=== PATIENT | female | born 1995 | race Caucasian/White ===

== ENCOUNTER 2019-03-03 10:04 | Inpatient (IN) ==
[2019-03-03] MEDS ORDERED: SODIUM CHLORIDE 0.9% 1000ML 2,000 ML IV SCH (10:45)
--- NOTE | 2019-03-03 10:49 | XRay Report ---
XR chest 1V portable HISTORY: 24 years-old Female syncope acute syncope COMPARISON: None available TECHNIQUE: Portable AP view of the chest FINDINGS: The cardiomediastinal and hilar silhouettes are within normal limits. Asymmetric alveolar opacities a re noted about the right upper lobe. Cardiomediastinal and hilar silhouettes are within normal limits . No pneumothorax, pleural effusion or overt pulmonary edema. Bones of the chest appear normal. IMPRESSION: Alveolar opacities of the right upper lobe are suspicious for pneumonia in the appropriat e clinical setting. The above report was generated using voice recognition software. It may contain grammatical, syntax o r spelling errors. Electronically signed by: Eliecer Dawson M.D. 03/03/2019 10:48 AM
[2019-03-03 11:19] LABS: Basophils # (auto) 0.03 K/uL (0-0.2); Basophils % (auto) 0.4 %; Eosinophils # (auto) 0.14 K/uL (0-0.5); Eosinophils % (auto) 1.7 %; Hematocrit (blood only) 37.7 % (37-47); Hemoglobin 12.7 g/dL (12.0-16.0); Immature Granulocytes # (auto) 0.03 K/uL (0.00-0.02); Immature Granulocytes % (auto) 0.4 %; Lymphocytes # (auto) 1.82 K/uL (1.2-3.4); Lymphocytes % (auto) 21.9 %; Mean Corpuscular Hgb Conc 33.7 g/dL (32-36); Mean Corpuscular Volume 90.6 fL (80-100); Mean Platelet Volume 11.2 fL (7.4-10.4); Monocytes # (auto) 0.38 K/uL (0.11-0.59); Monocytes % (auto) 4.6 %; Neutrophils # (auto) 5.92 K/uL (1.4-6.5); Platelet Count 323 K/uL (130-400); RDW Standard Deviation 39.8 fL (36.4-46.3); Red Blood Count 4.16 M/uL (4.2-5.4); White Blood Count 8.32 K/uL (4.8-10.8)
[2019-03-03 11:27] LABS: INR 1.1 (0.9-1.1); Prothrombin Time 11.6 Seconds (9.0-12.0)
[2019-03-03 11:36] LABS: Alanine Aminotransferase 30 U/L (12-78); Albumin Level 3.3 gm/dl (3.4-5.0); Aspartate Aminotransferase 30 U/L (15-37); Blood Urea Nitrogen 8 mg/dl (7-18); Calcium 9.9 mg/dl (8.5-10.1); Carbon Dioxide 26 mmol/L (21-32); Chloride 109 mmol/L (98-107); Est GFR (African American) 98.4; Est GFR (Non-African American) 84.9; Glucose 65 mg/dl (70-99); Magnesium 2.2 mg/dl (1.8-2.4); Potassium 4.4 mmol/L (3.5-5.1); Sodium 140 mmol/L (136-145)
[2019-03-03 11:46] LABS: Albumin Globulin Ratio 0.8 (0.9-2); Alkaline Phosphatase 105 U/L (45-117); Bilirubin,Total 0.1 mg/dl (0.2-1); Globulin 4.2 gm/dl (2.5-4.0); Total Protein 7.5 gm/dl (6.4-8.2); Troponin I < 0.015 ng/ml (0-0.045)
[2019-03-03 12:08] LABS: Appearance Urine Clear (Clear); Bacteria Urine Automated Negative (Negative); Bilirubin Urine Negative (Negative); Blood Urine Negative (Negative); Cast Urine Automated 0 /lpf (0-5); Color Urine Yellow; Epithelial Cell Urine Auto 20-30 /lpf (0-5); Glucose Urine UA Negative (Negative); Ketones Urine Negative (Negative); Leukocyte Esterase Urine Trace (Negative); Nitrite Urine Negative (Negative); Protein Urine Negative (Negative); RBC Urine Automated 0-4 /hpf (0-4); Specific Gravity Urine 1.009 (1.000-1.030); Urobilinogen Urine Negative (Negative)
[2019-03-03] MEDS ORDERED: OPTIRAY 320 125ml IV PRN (12:57)
--- NOTE | 2019-03-03 12:58 | CT Scan Report ---
CT head/brain wo con CT DOSE: HISTORY: Mental status change syncope TECHNIQUE: Multiaxial CT images of the head were performed without the use of intravenous contrast. A dose lowering technique was utilized adhering to the principles of ALARA. Comparison: None. Findings: The paranasal sinuses and mastoid air cells are clear. The calvarium and skull base are int act. The ventricles and sulci are within normal limits. There is no mass, hematoma, midline shift, or acute infarct. Impression: No acute intracranial abnormality. The above report was generated using voice recognition software. It may contain grammatical, syntax or spelling errors. Electronically signed by: Arvin Ford M.D. 03/03/2019 12:56 PM
--- NOTE | 2019-03-03 13:04 | CT Scan Report ---
CT angio chest PE protocol CT DOSE: 1022.56 mGy.cm HISTORY: Chest pain PE TECHNIQUE: Multiaxial CT images of the chest were performed following the intravenous administration of contrast to evaluate the pulmonary arteries. Maximal intensity projection images were also obtaine d. A dose lowering technique was utilized adhering to the principles of ALARA. COMPARISON STUDY: None. FINDINGS: Study is positive for pulmonary emboli involving the distal right main pulmonary artery as well as all major arterial involvement of the proximal right upper and right lower lobe pulmonary art erial structures. No evidence for a saddle embolus. Pulmonary arterial structures of the left hemitho rax enhance appropriately. There is, however a second order filling defect involving the mid left per ihilar pulmonary arterial vasculature. There is no evidence for a saddle embolus. There is a consolidative infiltrative process of the right upper lobe at the right apical region with associated underlying somewhat nodular component. Lungs otherwise appear clear. Minimal bibasilar at electasis. IMPRESSION: 1. Study is positive for right and to a lesser extent left central pulmonary emboli. 2. No evidence for a saddle embolus 3. Consolidative parenchymal infiltrate right upper lobe with associated multifocal nodularity. 4. CT should be repeated a later date to ensure complete resolution of the right upper lobe findings. The above report was generated using voice recognition software. It may contain grammatical, syntax or spelling errors. Electronically signed by: Arvin Ford M.D. 03/03/2019 1:03 PM
[2019-03-03 13:29] LABS: Partial Thromboplastin Ratio 1.3; Partial Thromboplastin Time 35.9 Seconds (21.0-31.0)
[2019-03-03] MEDS ORDERED: HEPARIN SOD (PORCINE) 1000 UNIT/ML 10 ML VIAL IV STA (13:35)
[2019-03-03] MEDS ORDERED: Heparin Adult STANDARD Wt-Based Dextrose 5% 25,000 units/500 mL IV SCH (13:45)
--- NOTE | 2019-03-03 14:33 | Emergency Department Note ---
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 Denies: head pain, neck pain, abdominal pain, nausea, vomiting.) The patient is a 24 year old female who presents to the Emergency Room with complaints of an episode of syncope beginning [employer]TE[employer]. She is accompanied by an employee from [facility], who reports the patient was in line for medication when a nurse witnessed her fall and lose consciousness. The patient states she does not remember how she fell and denies loss of consciousness or head trauma. The patient notes recent difficulties with balance, and states she has had pain in the front of her legs beginning 3 days ago. She reports diarrhea, beginning yesterday. The patient denies head pain, neck pain, abdominal pain, nausea, vomiting. She states her menstrual periods are very irregular, and her last one was last week. The patient denies oral control use. The patient came to [facility] on 02/27/19 for rehab for opioid addiction. She had two syncopal episodes at that time, and was taken to [place] ED. The patient was admitted for bilateral PEs and right upper lobe pneumonia. She was discharged yesterday, 03/02/19, back to [facility]. Home Medications Home Medications Medication Instructions Recorded Confirmed Type B complex with C#20-folic acid 1 cap PO DAILY 03/03/19 03/03/19 History [Nephrocaps] amoxicillin-pot clavulanate 1 tab PO BID 03/03/19 03/03/19 History [Augmentin] apixaban [Eliquis] 5 mg PO BID 03/03/19 03/03/19 History chlordiazepoxide HCl 25 mg PO UD 03/03/19 03/03/19 History duloxetine [Cymbalta] 60 mg PO DAILY 03/03/19 03/03/19 History folic acid 1 mg PO DAILY 03/03/19 03/03/19 History gabapentin 800 mg PO QID 03/03/19 03/03/19 History nicotine 1 patch TRANSDERMAL DAILY 03/03/19 03/03/19 History thiamine HCl (vitamin B1) [Vitamin 100 mg PO DAILY 03/03/19 03/03/19 History B-1] Allergies Allergy/AdvReac Type Severity Reaction Status Date / Time morphine AdvReac Unknown itchy Unverified 03/03/19 11:06 Past Med/Surg History Medical History Addiction Social History Feels Safe at Home: Yes Smoking Status: Current every day smoker Review of Systems See HPI for pertinent positives & negatives. and A total of 10 systems reviewed and were otherwise negative Physical Exam Vital Signs Vital Signs - 24 hr 03/03/19 10:09 03/03/19 10:32 03/03/19 10:55 Temperature 36.7 C Temperature Source Oral Sepsis Recent Fever Within 48 Hours No Sepsis Action Taken by Nursing No Action Required Pulse Rate 102 H 84 Pulse Rate from SpO2 Sensor Respiratory Rate 18 20 Blood Pressure 103/68 Blood Pressure Mean 79 Blood Pressure Position Sitting Pulse Oximetry 100 99 Oxygen Delivery Method Room Air 03/03/19 11:00 03/03/19 11:02 03/03/19 11:10 Temperature Temperature Source Sepsis Recent Fever Within 48 Hours Sepsis Action Taken by Nursing Pulse Rate 82 85 77 Pulse Rate from SpO2 Sensor 81 77 Respiratory Rate 14 15 17 Blood Pressure 106/67 Blood Pressure Mean 80 Blood Pressure Position Pulse Oximetry 100 99 Oxygen Delivery Method 03/03/19 11:25 03/03/19 11:30 03/03/19 11:31 Temperature Temperature Source Sepsis Recent Fever Within 48 Hours Sepsis Action Taken by Nursing Pulse Rate 79 66 65 Pulse Rate from SpO2 Sensor 66 66 Respiratory Rate 18 18 21 Blood Pressure 119/71 Blood Pressure Mean 87 Blood Pressure Position Pulse Oximetry 100 99 Oxygen Delivery Method 03/03/19 11:40 03/03/19 11:50 03/03/19 12:00 Temperature Temperature Source Sepsis Recent Fever Within 48 Hours Sepsis Action Taken by Nursing Pulse Rate 58 L 57 L 57 L Pulse Rate from SpO2 Sensor 56 L 57 L 55 L Respiratory Rate 20 19 16 Blood Pressure 115/77 Blood Pressure Mean 89 Blood Pressure Position Pulse Oximetry 99 100 100 Oxygen Delivery Method 03/03/19 12:01 03/03/19 12:10 03/03/19 12:20 Temperature Temperature Source Sepsis Recent Fever Within 48 Hours Sepsis Action Taken by Nursing Pulse Rate 52 L 52 L 59 L Pulse Rate from SpO2 Sensor 52 L 52 L 60 Respiratory Rate 16 16 16 Blood Pressure Blood Pressure Mean Blood Pressure Position Pulse Oximetry 100 99 99 Oxygen Delivery Method 03/03/19 12:30 03/03/19 12:31 Temperature Temperature Source Sepsis Recent Fever Within 48 Hours Sepsis Action Taken by Nursing Pulse Rate 55 L 55 L Pulse Rate from SpO2 Sensor 56 L 57 L Respiratory Rate 14 16 Blood Pressure 110/73 Blood Pressure Mean 85 Blood Pressure Position Pulse Oximetry 99 99 Oxygen Delivery Method GENERAL: Sitting up in bed, lethargic, non-toxic HEAD: normal cephalic, atraumatic EYE EXAM: normal conjunctiva, PERRL and EOM's grossly intact OROPHARYNX: no exudate, no erythema, lips, buccal mucosa, and tongue normal and mucous membranes are moist EARS: TMs clear b/l NECK: supple, no nuchal rigidity, no adenopathy, non-tender CHEST: stable to compression anteriorly and posteriorly LUNGS: clear to auscultation. Normal chest wall mechanics HEART: no murmurs, S1 normal and S2 normal ABDOMEN: abdomen soft, non-tender, normo-active bowel sounds, no masses, no rebound or guarding. PELVIS: stable to compression anteriorly and posteriorly BACK: Back is symmetrical on inspection and there is no deformity, no midline tenderness, no CVA tenderness. UPPER EXTREMITIES: full active and passive range of motion of all joints without tenderness to palpation LOWER EXTREMITIES: Pain with range of motion and palpation of bilateral thighs. Calves equal bilaterally. NEURO EXAM: Normal sensorium, cranial nerves II-XII grossly intact, normal speech, no gross weakness of arms, no gross weakness of legs. GCS: 15. Course ED COURSE: Vital signs were reviewed and showed tachycardia. The patients medical record was reviewed The above diagnostic studies were performed and reviewed. ED treatments and interventions as stated above. 1016: The patient was evaluated in room C9. A complete history and physical examination was performed. 1146: I reevaluated the patient and discussed her test results. 1308: Upon reevaluation, the patient is resting. I discussed my findings with the patient and she understands and agrees with the treatment plan. 1313: I reviewed the patient's case with Lisha Sanchez PA-C, [facility]. She will evaluate the patient for further management. Based on the patients age, coexisting illnesses, exam and lab findings the decision to treat as an inpatient was made. The patient remained stable while under my care. The patient will be evaluated for further management. Consultations Consultation #1: Lisha Sanchez PA-C, [facility] Time: 13:13 Administered Medications Ioversol (Optiray 320 125ml) 119 ml IV ONCE PRN PRN Reason: Interaction Checking Stop: 03/07/19 12:56 Last Admin: 03/03/19 12:58 Dose: 119 ml Documented by: [id number] Discontinued Medications Sodium Chloride (Nss 1000ml) 2,000 mls @ 999 mls/hr IV .Q2H1M ARABELLA Stop: 03/03/19 12:45 Last Infusion: 03/03/19 13:30 Dose: 0 mls/hr Documented by: [id number] Admin: 03/03/19 11:10 Dose: 999 mls/hr Documented by: [id number] Medical Decision Making Differential Diagnosis Differential diagnosis includes etiologies such as vasovagal event, infection, hypoglycemia, electrolyte abnormalities, cardiac sources, intracerebral event, toxicologic, neurologic, as well as others were entertained. Medical Records Attestation: I reviewed the patient's medical records. Home Medications Current Medication List: was personally reviewed by me Laboratory Data Attestation: I reviewed the patient's lab results. Result diagrams: 03/03/19 11:02 03/03/19 11:02 Lab Results 03/03/19 03/03/19 03/03/19 Range/Units 11:02 11:02 11:02 WBC 8.32 (4.8-10.8) K/uL RBC 4.16 L (4.2-5.4) M/uL Hgb 12.7 (12.0-16.0) g/dL Hct 37.7 (37-47) % MCV 90.6 (80-100) fL MCH 30.5 (25-34) pg MCHC 33.7 (32-36) g/dL RDW Std Deviation 39.8 (36.4-46.3) fL RDW Coeff of Santosh 12.0 (11.5-14.5) % Plt Count 323 (130-400) K/uL MPV 11.2 H (7.4-10.4) fL Immature Gran % (Auto) 0.4 % Neut % (Auto) 71.0 % Lymph % (Auto) 21.9 % [place] % (Auto) 4.6 % Eos % (Auto) 1.7 % Baso % (Auto) 0.4 % Immature Gran # (Auto) 0.03 H (0.00-0.02) K/uL Neut # (Auto) 5.92 (1.4-6.5) K/uL Lymph # (Auto) 1.82 (1.2-3.4) K/uL [place] # (Auto) 0.38 (0.11-0.59) K/uL Eos # (Auto) 0.14 (0-0.5) K/uL Baso # (Auto) 0.03 (0-0.2) K/uL PT 11.6 (9.0-12.0) Seconds INR 1.1 (0.9-1.1) APTT (21.0-31.0) Seconds PTT Ratio Sodium 140 (136-145) mmol/L Potassium 4.4 (3.5-5.1) mmol/L Chloride 109 H (98-107) mmol/L Carbon Dioxide 26 (21-32) mmol/L Anion Gap 6.0 (3-11) BUN 8 (7-18) mg/dl Creatinine 0.94 (0.6-1.2) mg/dl Est Cr Clr Drug Dosing Not Reportable Est GFR ( Amer) 98.4 Est GFR (Non-Af Amer) 84.9 BUN/Creatinine Ratio 8.0 L (10-20) Glucose 65 L (70-99) mg/dl Calcium 9.9 (8.5-10.1) mg/dl Magnesium 2.2 (1.8-2.4) mg/dl Total Bilirubin 0.1 L (0.2-1) mg/dl AST 30 (15-37) U/L ALT 30 (12-78) U/L Alkaline Phosphatase 105 (45-117) U/L Troponin I < 0.015 (0-0.045) ng/ml Total Protein 7.5 (6.4-8.2) gm/dl Albumin 3.3 L (3.4-5.0) gm/dl Globulin 4.2 H (2.5-4.0) gm/dl Albumin/Globulin Ratio 0.8 L (0.9-2) TSH 0.373 (0.300-4.500) uIu/ml Urine Color Urine Appearance (Clear) Urine pH (4.5-7.5) Ur Specific [place] (1.000-1.030) Urine Protein (Negative) Urine Glucose (UA) (Negative) Urine Ketones (Negative) Urine Blood (Negative) Urine Nitrite (Negative) Urine Bilirubin (Negative) Urine Urobilinogen (Negative) Ur Leukocyte Esterase (Negative) Urine WBC (Auto) (0-5) /hpf Urine RBC (Auto) (0-4) /hpf U Hyaline Cast (Auto) (0-5) /lpf U Epithel Cells (Auto) (0-5) /lpf Urine Bacteria (Auto) (Negative) 03/03/19 03/03/19 Range/Units 11:02 11:20 WBC (4.8-10.8) K/uL RBC (4.2-5.4) M/uL Hgb (12.0-16.0) g/dL Hct (37-47) % MCV (80-100) fL MCH (25-34) pg MCHC (32-36) g/dL RDW Std Deviation (36.4-46.3) fL RDW Coeff of Santosh (11.5-14.5) % Plt Count (130-400) K/uL MPV (7.4-10.4) fL Immature Gran % (Auto) % Neut % (Auto) % Lymph % (Auto) % [place] % (Auto) % Eos % (Auto) % Baso % (Auto) % Immature Gran # (Auto) (0.00-0.02) K/uL Neut # (Auto) (1.4-6.5) K/uL Lymph # (Auto) (1.2-3.4) K/uL [place] # (Auto) (0.11-0.59) K/uL Eos # (Auto) (0-0.5) K/uL Baso # (Auto) (0-0.2) K/uL PT (9.0-12.0) Seconds INR (0.9-1.1) APTT 35.9 H (21.0-31.0) Seconds PTT Ratio 1.3 Sodium (136-145) mmol/L Potassium (3.5-5.1) mmol/L Chloride (98-107) mmol/L Carbon Dioxide (21-32) mmol/L Anion Gap (3-11) BUN (7-18) mg/dl Creatinine (0.6-1.2) mg/dl Est Cr Clr Drug Dosing Est GFR ( Amer) Est GFR (Non-Af Amer) BUN/Creatinine Ratio (10-20) Glucose (70-99) mg/dl Calcium (8.5-10.1) mg/dl Magnesium (1.8-2.4) mg/dl Total Bilirubin (0.2-1) mg/dl AST (15-37) U/L ALT (12-78) U/L Alkaline Phosphatase (45-117) U/L Troponin I (0-0.045) ng/ml Total Protein (6.4-8.2) gm/dl Albumin (3.4-5.0) gm/dl Globulin (2.5-4.0) gm/dl Albumin/Globulin Ratio (0.9-2) TSH (0.300-4.500) uIu/ml Urine Color Yellow Urine Appearance Clear (Clear) Urine pH 7.0 (4.5-7.5) Ur Specific [place] 1.009 (1.000-1.030) Urine Protein Negative (Negative) Urine Glucose (UA) Negative (Negative) Urine Ketones Negative (Negative) Urine Blood Negative (Negative) Urine Nitrite Negative (Negative) Urine Bilirubin Negative (Negative) Urine Urobilinogen Negative (Negative) Ur Leukocyte Esterase Trace H (Negative) Urine WBC (Auto) 1-5 (0-5) /hpf Urine RBC (Auto) 0-4 (0-4) /hpf U Hyaline Cast (Auto) 0 (0-5) /lpf U Epithel Cells (Auto) 20-30 H (0-5) /lpf Urine Bacteria (Auto) Negative (Negative) Imaging Data Radiologist's Impression: Radiology results as stated below per my review and the radiologist's interpretation: CT head/brain wo con CT DOSE: HISTORY: Mental status change syncope TECHNIQUE: Multiaxial CT images of the head were performed without the use of intravenous contrast. A dose lowering technique was utilized adhering to the principles of ALARA. Comparison: None. Findings: The paranasal sinuses and mastoid air cells are clear. The calvarium and skull base are intact. The ventricles and sulci are within normal limits. There is no mass, hematoma, midline shift, or acute infarct. Impression: No acute intracranial abnormality. The above report was generated using voice recognition software. It may contain grammatical, syntax or spelling errors. Electronically signed by: Arvin Ford M.D. 03/03/2019 12:56 PM XR chest 1V portable HISTORY: 24 years-old Female syncope acute syncope COMPARISON: None available TECHNIQUE: Portable AP view of the chest FINDINGS: The cardiomediastinal and hilar silhouettes are within normal limits. Asymmetric alveolar opacities are noted about the right upper lobe. Cardiomediastinal and hilar silhouettes are within normal limits. No pneumothorax, pleural effusion or overt pulmonary edema. Bones of the chest appear normal. IMPRESSION: Alveolar opacities of the right upper lobe are suspicious for pneumonia in the appropriate clinical setting. The above report was generated using voice recognition software. It may contain grammatical, syntax or spelling errors. Electronically signed by: Eliecer Dawson M.D. 03/03/2019 10:[address] angio chest PE protocol CT DOSE: 1022.56 mGy.cm HISTORY: Chest pain PE TECHNIQUE: Multiaxial CT images of the chest were performed following the intrav enous administration of contrast to evaluate the pulmonary arteries. Maximal intensity projection images were also obtained. A dose lowering technique was utilized adhering to the principles of ALARA. COMPARISON STUDY: None. FINDINGS: Study is positive for pulmonary emboli involving the distal right main pulmonary artery as well as all major arterial involvement of the proximal right upper and right lower lobe pulmonary arterial structures. No evidence for a saddle embolus. Pulmonary arterial structures of the left hemithorax enhance appropriately. There is, however a second order filling defect involving the mid left perihilar pulmonary arterial vasculature. There is no evidence for a saddle embolus. There is a consolidative infiltrative process of the right upper lobe at the right apical region with associated underlying somewhat nodular component. Lungs otherwise appear clear. Minimal bibasilar atelectasis. IMPRESSION: 1. Study is positive for right and to a lesser extent left central pulmonary emboli. 2. No evidence for a saddle embolus 3. Consolidative parenchymal infiltrate right upper lobe with associated multifocal nodularity. 4. CT should be repeated a later date to ensure complete resolution of the right upper lobe findings. The above report was generated using voice recognition software. It may contain grammatical, syntax or spelling errors. Electronically signed by: Arvin Ford M.D. 03/03/2019 1:03 PM ECG Data Attestation: I personally reviewed and interpreted this ECG as follows: Indication: syncope Rate (beats per minute): 85 Rhythm: normal sinus Findings: + other (normal axis.); no PAC and no PVC Blood Pressure Blood Pressure Findings: Normal blood pressure Blood Pressure Disposition: did not require urgent referral Head Trauma GCS Score: 15 MDM Narrative Patient is a 24-year-old female who presents the ER for syncopal episode. [facility] She was recently admitted and discharged from [facility] for bilateral PEs. She has no chest pain at this time. Does not recall the events. She does have bilateral calf pain. Labs were obtained and showed no significant leukocytosis or anemia. PTT was slightly elevated at 36. BMP along with LFTs bilirubin troponin was unremarkable. TSH was unremarkable. UA was negative. CT PE does confirm some large central PEs. EKG was unremarkable. CT head was negative. Patient has no other complaints. Unable to access the images from her recent hospitalization and I am concerned that these PEs may have gotten worse that she was have bilateral leg pain and suddenly passed out. She was placed on IV heparin drip and given IV heparin bolus. She was updated bedside and admitted to the hospital for further workup. Impression & Plan Pulmonary embolism, bilateral, Syncope Critical Care Time I have personally spent greater than 35 minutes of critical care time in the direct management of this patient. This includes bedside care, interpretation of diagnostic studies, and testing, discussion with consultants, patient, and family members, and other required patient management activities. This 35 minutes is in excess of all separately billable procedures. Critical Care Time: Yes Total Critical Care Time: 35 Discharge Plan Visit Data Chief Complaint: Referred by Doctor Stated Complaint: NO BALANCE,DETOXING, BLOOD CLOTS IN LUNG ED Provider: Cuco Hernandez Discharge Problem: Pulmonary embolism, bilateral, Syncope Patient Disposition: Being Evaluated by Hospitalist Forms Stand Alone Forms: My [facility] Prescriptions Prescriptions: No Action nicotine 14 mg/24 hr Patch 24 Hour 1 patch TRANSDERMAL DAILY RF: 0 thiamine HCl (vitamin B1) [Vitamin B-1] 100 mg Tablet 100 mg PO DAILY RF: 0 chlordiazepoxide HCl 25 mg Capsule 25 mg PO UD RF: 0 gabapentin 800 mg Tablet 800 mg PO QID RF: 0 folic acid 1 mg Tablet 1 mg PO DAILY RF: 0 Nephrocaps 1 mg Capsule 1 cap PO DAILY RF: 0 amoxicillin-pot clavulanate [Augmentin] 875-125 mg Tablet 1 tab PO BID RF: 0 duloxetine [Cymbalta] 60 mg Capsule,Delayed Release(Dr/Ec) 60 mg PO DAILY RF: 0 Eliquis 5 mg Tablet 5 mg PO BID RF: 0 Referrals Referrals: PCP,NO [Primary Care Provider] - Discharge Problem: Syncope Qualifiers: Syncope type: unspecified Qualified Code(s): R55 - Syncope and collapse The scribe's documentation has been prepared under my direction and personally reviewed by me in its entirety. I confirm that the note above accurately reflects all work, treatment, procedures, and medical decision making performed by me.
--- NOTE | 2019-03-03 14:37 | History & Physical Report ---
Date of Service March 03, 2019 Assessment & Plan (1) Syncope: Pt presented with reported syncope while standing in med line today. Staff reported pt had couple second LOC. Pt with recent hx syncope 4 days ago and found to have bilateral PE. CT HEAD: no acute changes DDX: PE, orthostatic hypotension, vasovagal syncope, dehydration, hypoglycemia, drug withdrawal -monitor -fall precautions -IVF -treat PE as below -treat drug withdrawal as below (2) Pulmonary embolism, bilateral: Pt with hx syncope x2 at [facility] and was sent to [facility]. Was admitted 02/27/19-03/02/19 for PE. Hospital records not available at this time, however [facility]'s charge nurse reports her discharge had that she was on IV heparin and d/c on Eliquis. CTA: 1. Study is positive for right and to a lesser extent left central pulmonary emboli. 2. No evidence for a saddle embolus 3. Consolidative parenchymal infiltrate right upper lobe with associated multifocal nodularity. 4. CT should be repeated a later date to ensure complete resolution of the right upper lobe findings. -In ER P: 102 down to 50's, BP: 103/68, R: 18, pulse ox: 99-100% on RA -In ER heparin drip started -Plan to transition pt back to eliquis this evening and d/c heparin drip -obtain records from [facility] and see if pt had Venous Doppler of BLE to r/o DVT. (3) Pneumonia: Reported productive cough and SOB x couple of months and reported antibiotic course during that time CT CHEST: Consolidative parenchymal infiltrate right upper lobe with associated multifocal nodularity. -Pt afebrile. no leukocytosis -blood cultures pending -will start Levaquin as once daily dosing -would recommend repeat CT chest outpatient in 6-8 weeks to recheck for resolution of consolidative findings on RUL (4) Drug abuse: Hx huffing air duster, last reported use was 3 weeks ago. Snorts Klonopin 20-30 tabs a day as well as snorting methadone, percocet, vicodin, oxy and last reported use was 4 days ago. Pt denies ETOH use. Pt was to start suboxone taper today. She is currently on valium taper, and Keppra 500mg BID x 21 days for opiate and benzo withdrawal. C/O N/V/D, abdominal cramping, extremity cramping -will continue valium taper, suboxone taper, keppra (5) Depression with anxiety: Hx anxiety, bipolar, borderline personality disorder -continue abilify, strattera, cymbalta DVT Prophylaxis -Pt has current PE. Currently on heparin drip and will transition to Eliquis Pt from [place]. She states doesn't think she has PCP Pt currently at [facility] for rehab. Pt was seen with Dr Lyle. See addendum History of Present Illness Chief Complaint: Syncope Primary Care Provider: NO PCP Pt is 24 y/o F with PMH bipolar disorder, anxiety, depression, borderline personality disorder, endometriosis, drug abuse presented to ER from [facility] for syncope this morning. Pt states this morning was standing in line for medications when she passed out. Pt states she thinks she locked her legs and reports that she remembers feeling lightheaded and then passing out and pt states she doesn't think she fully lost consciousness. [facility] staff reports she had LOC for a few seconds. She denies any LEBLANC, vision changes. Pt was seen at [facility] for 2 episodes of syncope on 02/27/19-03/02/19. She was diagnosed with pneumonia and PE. Was discharged on Eliquis and Augmentin. Pt states that she does not think she had DVT and she also thinks they did coagulopathy labs prior to starting eliquis, however records are not available at this time. I Was able to speak with charge nurse at [facility]. He confirmed med list with me. She was to start suboxone taper today. She is currently on valium taper, and Keppra 500mg BID x 21 days for opiate and benzo withdrawal. She reports hx rehab in 06/2018 and was clean for a few months and then started using again. Hx huffing air duster, last reported use was 3 weeks ago. Snorts Klonipin 20-30 tabs a day as well as snorting methadone, percocet, vicodin, oxy and last reported use was 4 days ago. Pt denies ETOH use. Patient reports hx bulemia but no longer purges. States that she restricts now and has not been eating or drinking much and last had jello yesterday. She reports past 2 days with vomiting and diarrhea, abdominal cramping and upper and lower extremity cramping. Reports has had productive cough for past 4 months and states was on an antibiotic once. States has had chronic SOB. Denies hemoptysis. Denies recent injury/surgery. Is from [place] and had [address] [place] 02/27/19. Denies hx DVT/PE. Denies fever/chills, diaphoresis, vision changes, neck pain, CP, orthopnea, palpitations, sore throat, choking, otalgia, rhinorrhea, abdominal pain, paresthesias, extremity edema, rashes, urinary symptoms. Cannot obtain FH as pt unsure of FH. Allergies Allergy/AdvReac Type Severity Reaction Status Date / Time morphine AdvReac Unknown itchy Unverified 03/03/19 11:06 Home Medications Home Medications Medication Instructions Recorded Confirmed Type amoxicillin-pot clavulanate 1 tab PO BID 03/03/19 03/03/19 History [Augmentin] apixaban [Eliquis] 5 mg PO BID 03/03/19 03/03/19 History aripiprazole [Abilify] 2 mg PO HS 03/03/19 03/03/19 History atomoxetine [Strattera] 30 mg PO QAM 03/03/19 03/03/19 History buprenorphine-naloxone 2 tab SUBLINGUAL UD 03/03/19 03/03/19 History diazepam [Valium] 5 mg PO UD 03/03/19 03/03/19 History duloxetine [Cymbalta] 60 mg PO DAILY 03/03/19 03/03/19 History folic acid 1 mg PO DAILY 03/03/19 03/03/19 History gabapentin 800 mg PO QID 03/03/19 03/03/19 History levetiracetam [Keppra] 500 mg PO BID 03/03/19 03/03/19 History multivitamin 1 tab PO DAILY 03/03/19 03/03/19 History nicotine 1 patch TRANSDERMAL DAILY 03/03/19 03/03/19 History thiamine HCl (vitamin B1) [Vitamin 100 mg PO DAILY 03/03/19 03/03/19 History B-1] trazodone 300 mg PO HS PRN 03/03/19 03/03/19 History Past Med/Surg History Medical History IUD (intrauterine device) in place (Chronic) Endometriosis (Chronic) Heart murmur (Chronic) Drug abuse (Chronic) Borderline personality disorder (Chronic) Bipolar disorder (Chronic) Depression with anxiety (Chronic) Bulimia (Chronic) Addiction Surgical History History of exploratory laparotomy (Chronic) Hx of tonsillectomy (Chronic) Social History Preferred Language: Greek Communication Ability: Effective Beliefs That Will Affect Care: None Current Living Situation: Rehab and Other Current Living Situation Comment: [facility] Other Information That Helps Us Care for You: No Feels Safe at Home: Yes Safety Concerns: Feels Safe At This Time Smoking Status: Current every day smoker Hx Alcohol Use: No Hx Substance Use: Yes Review of Systems All systems reviewed & are unremarkable except as noted in HPI & below Physical Exam Vital Signs (Past 24 Hours): Last Vital Signs Temp 36.7 C 03/03/19 10:09 Pulse 55 L 03/03/19 12:31 Resp 16 03/03/19 12:31 BP 110/73 03/03/19 12:30 Pulse Ox 99 03/03/19 12:31 Physical Exam: General: no acute distress, WDWN Head: normocephalic, atraumatic Eyes: PERRL, EOM's intact, conjunctiva non-injected, anicteric ENT: normal inspection external ears, nose, mucous membranes dry Neck: supple, trachea midline Lungs: clear, no respiratory distress, no wheezing/rhonchi/rales CV: RRR, systolic murmur Abd: normal BS, soft, non-tender to palpation Ext: no cyanosis, no calf tenderness, right calf appears slightly larger than left Neuro: A&O x 3, no focal deficits noted, normal affect Skin: warm, dry Results & Data Laboratory Results Short CBC 03/03/19 Range/Units 11:02 WBC 8.32 (4.8-10.8) K/uL Hgb 12.7 (12.0-16.0) g/dL Hct 37.7 (37-47) % Plt Count 323 (130-400) K/uL BMP 03/03/19 11:02 Sodium 140 Potassium 4.4 Chloride 109 H Carbon Dioxide 26 BUN 8 Creatinine 0.94 Glucose 65 L Calcium 9.9 Cardiac Enzymes 03/03/19 Range/Units 11:02 Troponin I < 0.015 (0-0.045) ng/ml Liver Function 03/03/19 Range/Units 11:02 Total Bilirubin 0.1 L (0.2-1) mg/dl AST 30 (15-37) U/L ALT 30 (12-78) U/L Alkaline Phosphatase 105 (45-117) U/L Albumin 3.3 L (3.4-5.0) gm/dl Urine 03/03/19 Range/Units 11:20 Urine Color Yellow Urine Appearance Clear (Clear) Urine pH 7.0 (4.5-7.5) Ur Specific [place] 1.009 (1.000-1.030) Urine Protein Negative (Negative) Urine Glucose (UA) Negative (Negative) Diagnostic Findings CT HEAD: Impression: No acute intracranial abnormality. CTA CHEST: IMPRESSION: 1. Study is positive for right and to a lesser extent left central pulmonary emboli. 2. No evidence for a saddle embolus 3. Consolidative parenchymal infiltrate right upper lobe with associated multifocal nodularity. 4. CT should be repeated a later date to ensure complete resolution of the right upper lobe findings. CXR: IMPRESSION: Alveolar opacities of the right upper lobe are suspicious for pneumonia in the appropriate clinical setting. ECG Rate (beats per minute): 85 Rhythm: normal sinus Supervising Physician Co-Signing Physician Notes I have seen and examined the patient and have discussed the case with the provider above. I agree with the assessment and plan as stated with the following exceptions. 24-year-old female brought to the ER after a reported syncopal episode at [facility] rehab. The patient has a history of bulimia and reported purposely restricting her food intake in the last few days. She is not been drinking water as she should and has been sick with a pneumonia, also diagnosed with a pulmonary embolus. She had had a couple of syncopal episodes prompting transfer to an outside hospital within the last week where she was diagnosed with both pneumonia and pulmonary emboli, and placed on Augmentin and Eliquis, respectively. In the ER she is hemodynamically stable and afebrile she is mentating at baseline and is lucid. She denies any coughing, fevers, chills and is been doing well on her Augmentin and Eliquis. Her syncopal episode lasted only a few seconds and was consistent with orthostatic hypotension versus vasovagal syncope in the setting of infection, PE, and mainly restriction of food and water intake purposefully on her part. She identifies this and is currently ambulating without difficulty in the ER. She has stated that she will eat more food, and has the medications she needs to treat her pneumonia and pulmonary emboli. Physical exam was unremarkable and she is otherwise healthy. She was asking to be discharged and actually tried to walk out after removing her own peripheral IV. However, after finding out that [facility] wouldn't accept her back to their facility, she decided she wanted to stay in the hospital but refuse further evaluation or treatment. She was downgraded off the monitoring manager, as she was refusing to wear it per staff. Will continue her on Augmentin and Eliquis as well as her diazepam withdrawal regimen which she was taking at [facility] for now. Would make an effort to not give her more benzos or narcotics during this hospitalization. DO Valdo (1) Syncope Syncope type: unspecified Qualified Code(s): R55 - Syncope and collapse
[2019-03-03] MEDS ORDERED: ACETAMINOPHEN 325 MG TAB PO STA (15:35)
[2019-03-03] MEDS ORDERED: diazePAM 5 MG TABLET PO STA (16:09)
[2019-03-03] MEDS ORDERED: TRAZODONE HCL 100 MG TAB PO PRN (18:13)
[2019-03-03] MEDS ORDERED: SODIUM CHLORIDE 0.9% 1000ML 1,000 ML IV SCH (18:13)
[2019-03-03] MEDS ORDERED: LEVOFLOXACIN/D5W 750 MG/150 ML BAG IV SCH (19:00)
[2019-03-03] MEDS: NICOTINE 14 MG/24 HR PATCH TD SCH (19:56)
[2019-03-03] MEDS: AMOXICILLIN/CLAVULANATE 875 MG TAB PO SCH (19:56)
[2019-03-03] MEDS: APIXABAN 5 MG TABLET PO SCH (19:56)
[2019-03-03] MEDS: GABAPENTIN 800 MG TAB PO SCH ×2 (19:57→22:46)
[2019-03-03] MEDS: diazePAM 5 MG TABLET PO SCH (20:32)
[2019-03-03] MEDS: ARIPIprazole 1 MG/ML ORAL SOLN 150 ML BTL PO SCH (20:33)
[2019-03-03] MEDS: levETIRAcetam 500 MG TAB PO SCH (20:33)
[2019-03-03] MEDS ORDERED: BUPRENORPHINE/NALOXONE 2/0.5MG 1 TAB SL ONE (21:00)
[2019-03-03] MEDS ORDERED: diazePAM 5 MG TABLET PO SCH (21:00)
[2019-03-03] MEDS ORDERED: BUPRENORPHINE/NALOXONE 2/0.5MG 1 TAB SL SCH (21:00)
[2019-03-03] MEDS ORDERED: HALOPERIDOL 5 MG TAB PO ONE ×2 (21:30→22:45)
[2019-03-03] MEDS ORDERED: OLANZapine 10 MG/2.1 ML SDV IM STA (23:18)
--- NOTE | 2019-03-03 23:27 | Communication Note ---
Date of Service: March 03, 2019 Approx 2100: When the patient was on the floor she reported to the nurse if she did not get her medications she had requested she would jump out the window. The nurse informed me of this and we placed on a one-to-one with safety trays for suicide precautions. Psychiatry was consulted. She then started throwing objects around the room including chairs and remote controls and then locked herself in the bathroom after finding out she would have a one-to-one observation. A robert martinez was called and security had to remove her from the bathroom. Part of the robert martinez team was 1 of the hospital mental health staff who calmed her down and gave her some Haldol for visual hallucinations. She then mentioned to him that she had visions of herself cutting her tattoos on her arms. At this point I examined her and she did not deny suicidal ideations, but reconfirmed that she did have visions of herself cutting her tattoos. She then informed me she had been treated for suicide attempts 4 times in the past, the last one on June 2018 when she overdosed on lithium purposefully. She is currently in a stressful situation recently and living alone in [place] where she does not have the support of friends or family per her report. 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 She lives in [place] at least 3 hours from here and has no ride back until the morning. Based on my assessment in her behaviors and statements on 302 petition was put in place to prevent her from leaving the hospital pending formal psych evaluation. She was notified of this change. I also updated staff at [facility] who were scheduling transport for her for the morning. We will await updates from hospital staff. DO Valdo
[2019-03-03] MEDS ORDERED: LORazepam 2 MG/ML VIAL (IM USE) IM STA (23:49)
[2019-03-04] MEDS ORDERED: LORazepam 2 MG/ML VIAL (IM USE) IM STA (00:55)
[2019-03-04] MEDS ORDERED: KETOROLAC TROMETHAMINE 15 MG/ML VIAL IM STA (00:55)
--- NOTE | 2019-03-04 01:33 | Psychiatric Progress Note ---
Date of Service March 04, 2019 Interval History Chief Complaint acute agitation Subjective Subjective new admit, full psych consult pending, asked to provide recs to support medical care on floor given dx of bipolar disorder and complex detox. Patient recently hospitalized at [facility] for syncope at rehab ([facility]) and found to have bilateral PEs. She has a history of snorting 20-30 tabs of Klonopin a day in combo with pain pills. Initially represented to me that there was concern about giving additional prn medication for agitation given personality disorder/med seeking manipulative behavior and current rx of 15 mg Valium in addition to suboxone, neurontin, etc. QTc <450. Recommended 5 mg of Haldol earlier and it was repeated with no perceived benefit. Primary team to complete 302 warrant should patient further attempt to leave AMA per liaison. Patient remained agitated in restraints so Zyprexa 10 mg IM was recommended. Liaison reported no benefit. Reviewed that not particularly comfortable giving this patient additional benzos or antipsychotics via phone consultation. Made aware that Dr. Dunaway ordered Ativan 1 mg IM. Mentioned to liaison that ketamine may be an option in consultation with PCU if further agitation. Case reviewed with Dr. Dunaway following his examination of the patient. He reported patient is calmer overall, no evidence of dystonia, excessive carole tion/airway compromise and redirected so not banging head (problematic as patient is on anticoagulants). His assessment is that she is stabilizing on current floor/regimen at this time and he is comfortable administering additional Ativan prn throughout the night as clinically indicated and will consult with me directly as needed. Concern that patient could be manic in addition to detox so d/c'd Cymbalta 90 mg as an antidepressant until seen by consult service in am. Indication may be for pain, unsure. Abilify likely to need titrated as only 2 mg. If requires additional prn, based on tolerability/response so far could suggest another 10 mg Haldol and Ativan 2 mg IM overnight. If requires additional antipsychotics and/or longer time in restraints may need to add CPK to labs to monitor rhabdo. Physical Exam Vital Signs (Past 24 Hours) Last Vital Signs Temp 36.7 C 03/03/19 10:09 Pulse 100 H 03/04/19 00:01 Resp 16 03/03/19 12:31 BP 125/71 03/04/19 00:01 Pulse Ox 98 03/04/19 00:01 Results & Data Laboratory Results Laboratory Results - last 24 hr 03/03/19 03/03/19 03/03/19 11:02 11:02 11:02 WBC 8.32 RBC 4.16 L Hgb 12.7 Hct 37.7 MCV 90.6 MCH 30.5 MCHC 33.7 RDW Std Deviation 39.8 RDW Coeff of Santosh 12.0 Plt Count 323 MPV 11.2 H Immature Gran % (Auto) 0.4 Neut % (Auto) 71.0 Lymph % (Auto) 21.9 Cherry % (Auto) 4.6 Eos % (Auto) 1.7 Baso % (Auto) 0.4 Immature Gran # (Auto) 0.03 H Neut # (Auto) 5.92 Lymph # (Auto) 1.82 Cherry # (Auto) 0.38 Eos # (Auto) 0.14 Baso # (Auto) 0.03 PT 11.6 INR 1.1 APTT PTT Ratio Sodium 140 Potassium 4.4 Chloride 109 H Carbon Dioxide 26 Anion Gap 6.0 BUN 8 Creatinine 0.94 Est Cr Clr Drug Dosing Not Reportable Est GFR ( Amer) 98.4 Est GFR (Non-Af Amer) 84.9 BUN/Creatinine Ratio 8.0 L Glucose 65 L Calcium 9.9 Magnesium 2.2 Total Bilirubin 0.1 L AST 30 ALT 30 Alkaline Phosphatase 105 Troponin I < 0.015 Total Protein 7.5 Albumin 3.3 L Globulin 4.2 H Albumin/Globulin Ratio 0.8 L TSH 0.373 Urine Color Urine Appearance Urine pH Ur Specific [place] Urine Protein Urine Glucose (UA) Urine Ketones Urine Blood Urine Nitrite Urine Bilirubin Urine Urobilinogen Ur Leukocyte Esterase Urine WBC (Auto) Urine RBC (Auto) U Hyaline Cast (Auto) U Epithel Cells (Auto) Urine Bacteria (Auto) 03/03/19 03/03/19 11:02 11:20 WBC RBC Hgb Hct MCV MCH MCHC RDW Std Deviation RDW Coeff of Santosh Plt Count MPV Immature Gran % (Auto) Neut % (Auto) Lymph % (Auto) Cherry % (Auto) Eos % (Auto) Baso % (Auto) Immature Gran # (Auto) Neut # (Auto) Lymph # (Auto) Cherry # (Auto) Eos # (Auto) Baso # (Auto) PT INR APTT 35.9 H PTT Ratio 1.3 Sodium Potassium Chloride Carbon Dioxide Anion Gap BUN Creatinine Est Cr Clr Drug Dosing Est GFR ( Amer) Est GFR (Non-Af Amer) BUN/Creatinine Ratio Glucose Calcium Magnesium Total Bilirubin AST ALT Alkaline Phosphatase Troponin I Total Protein Albumin Globulin Albumin/Globulin Ratio TSH Urine Color Yellow Urine Appearance Clear Urine pH 7.0 Ur Specific Kite 1.009 Urine Protein Negative Urine Glucose (UA) Negative Urine Ketones Negative Urine Blood Negative Urine Nitrite Negative Urine Bilirubin Negative Urine Urobilinogen Negative Ur Leukocyte Esterase Trace H Urine WBC (Auto) 1-5 Urine RBC (Auto) 0-4 U Hyaline Cast (Auto) 0 U Epithel Cells (Auto) 20-30 H Urine Bacteria (Auto) Negative Current Inpatient Medications Current Inpatient Medications: Current Inpatient Medications Acetaminophen (Tylenol) 650 mg PO Q4H PRN PRN Reason: Pain or Fever Stop: 04/02/19 18:12 Amoxicillin/Clavulanate Potassium (Augmentin 875mg) 1 tab PO BIDM [facility] Stop: 03/09/19 18:59 Last Admin: 03/03/19 19:56 Dose: 1 tab Documented by: Apixaban (Eliquis) 10 mg PO BID [facility] Stop: 03/10/19 18:59 Last Admin: 03/03/19 19:56 Dose: 10 mg Documented by: Aripiprazole (Abilify) 2 mg PO HS [facility] Stop: 04/02/19 20:59 Last Admin: 03/03/19 20:33 Dose: 2 mg Documented by: Buprenorphine/Naloxone (Suboxone 2 Mg/0.5 Mg) 0.5 tab SL [facility] Stop: 03/09/19 21:01 Buprenorphine/Naloxone (Suboxone 2 Mg/0.5 Mg) 1 tab SL BID [facility]; Taper Stop: 03/07/19 08:59 Diazepam (Valium) 5 mg PO TID [facility] Stop: 03/04/19 23:59 Last Admin: 03/03/19 20:32 Dose: 5 mg Documented by: Diazepam (Valium) 5 mg PO BID [facility] Stop: 03/07/19 21:01 Diazepam (Valium) 5 mg PO [facility]; Taper Stop: 03/14/19 20:59 Folic Acid (Folvite) 1 mg PO DAILY [facility] Stop: 04/03/19 08:59 Gabapentin (Neurontin) 800 mg PO QID [facility] Stop: 04/02/19 18:59 Last Admin: 03/03/19 22:46 Dose: 800 mg Documented by: Levetiracetam (Keppra) 500 mg PO BID [facility] Stop: 04/02/19 20:59 Last Admin: 03/03/19 20:33 Dose: 500 mg Documented by: Miscellaneous (Remove Nicoderm Patch) 1 ea N/A HS [facility] Stop: 04/03/19 08:58 Miscellaneous (Order Awaiting Action) 1 ea N/A QS [facility] Stop: 04/03/19 00:00 Last Admin: 03/03/19 23:04 Dose: Not Given Documented by: Multivitamins (Multivitamin Tab) 1 tab PO DAILY [facility] Stop: 04/03/19 08:59 Nicotine (Nicoderm Cq) 14 mg TD QAM [facility] Stop: 04/02/19 18:59 Last Admin: 03/03/19 19:56 Dose: 14 mg Documented by: Thiamine HCl (Vitamin B-1) 100 mg PO DAILY [facility] Stop: 04/03/19 08:59 Trazodone HCl (Desyrel) 300 mg PO HS PRN PRN Reason: Insomnia Stop: 04/02/19 18:12 Last Admin: 03/03/19 22:46 Dose: 300 mg Documented by: Vitamin B Complex/Folic Acid (Nephrocaps) 1 cap PO DAILY [facility] Stop: 04/02/19 08:59
[2019-03-04] MEDS ORDERED: AMOXICILLIN/CLAVULANATE 875 MG TAB PO SCH (08:00)
[2019-03-04] MEDS ORDERED: BUPRENORPHINE/NALOXONE 2/0.5MG 1 TAB SL SCH ×3 (09:00→21:00)
[2019-03-04] MEDS ORDERED: DULOXETINE HCL 60 MG CAP PO SCH (09:00)
[2019-03-04] MEDS: GABAPENTIN 800 MG TAB PO SCH ×4 (11:57→20:58)
[2019-03-04] MEDS: diazePAM 5 MG TABLET PO SCH ×3 (11:58→20:58)
[2019-03-04] MEDS: BUPRENORPHINE/NALOXONE 2/0.5MG 1 TAB SL SCH ×2 (11:58→21:00)
[2019-03-04] MEDS: levETIRAcetam 500 MG TAB PO SCH ×2 (11:59→20:59)
[2019-03-04] MEDS: FOLIC ACID 1 MG TAB PO SCH (11:59)
[2019-03-04] MEDS: AMOXICILLIN/CLAVULANATE 875 MG TAB PO SCH ×2 (12:00→16:40)
[2019-03-04] MEDS: APIXABAN 5 MG TABLET PO SCH ×2 (12:00→20:58)
[2019-03-04] MEDS: THIAMINE HCL 100 MG TAB PO SCH (12:00)
[2019-03-04] MEDS: NEPHROCAPS PO SCH (12:00)
[2019-03-04] MEDS: MULTIVITAMIN TAB PO SCH (12:01)
[2019-03-04] MEDS: NICOTINE 14 MG/24 HR PATCH TD SCH (12:34)
[2019-03-04 12:55] LABS: Hematocrit (blood only) 37.9 % (37-47); Hemoglobin 12.6 g/dL (12.0-16.0); Mean Corpuscular Hgb Conc 33.2 g/dL (32-36); Mean Corpuscular Volume 91.5 fL (80-100); Mean Platelet Volume 10.8 fL (7.4-10.4); Platelet Count 286 K/uL (130-400); RDW Coefficient of Variation 12.1 % (11.5-14.5); Red Blood Count 4.14 M/uL (4.2-5.4); White Blood Count 7.33 K/uL (4.8-10.8)
--- NOTE | 2019-03-04 13:13 | Psychiatric Consultation ---
Date of Consultation March 04, 2019 Impression / Recommendations Impression 24-year-old female admitted medically following a syncopal episode at [facility] rehab facility. Pt diagnoses with and treated for PE and pneumonia. Substance abuse has been a long-term problem for the patient with recent relapse and hospital admission. Psychiatric consultation was requested due to unpredictable behavior displayed on admission, which has since resolved. On-call psychiatrist was called to recommend medications to assist with behaviors last evening, and suggested that duloxetine be held until the patient was seen on our service today. During this episode, the patient had made statements about a desire to jump out the window. Pt confirms and "episode" yesterday, but denies suicidality, intent, or plan. She states that she has been happy with her current medications, but is concerned about her level of anxiety. We discussed prn options to reduce anxiety. Previous trial of hydroxyzine was reportedly not beneficial, therefore will trial diphenhydramine 25mg prn for anxiety. Risks, benefits, and potential side effects were explained. Pt verbalized understanding and is agreeable with treatment plan outlined above. Pt denies clear history of manic/hypomanic episodes, and given long history of substance abuse, the accuracy of a bipolar diagnosis is unclear. Would suggest continuation of duloxetine at home dosage until seen by outpatient psychiatrist. This is to avoid further destabilization and allow a provider familiar with her history to decide of more significant medication changes are appropriate. Based on patient's denial of suicidality, ability to voice a clear support network, and discussion of safety planning, she does not meet criteria for inpatient psychiatric admission. Our primary recommendation would be inpatient D&A rehabilitation, which the patient is refusing. She voices a plan to pursue "intensive AA meetings" and states that her is supportive of this decision. From a mental health standpoint, the patient is viewed as psychiatri bimal stable for discharge when decided by primary medical team. Attending physician will need to dispo 302 warrant at time of discharge. Dr. Cande Martin was directly involved in review and discussion of the patient's case and participated in medical decision making regarding treatment recommendations. CPT Code Initial Consultation: 73433 Psych History Identifying Data 24-year-old female admitted medically due to syncopal episode while at rehab at [facility]. Recent admission to [facility] for similar events yielded a diagnosis of pneumonia and PE. Psychiatric consult requested due to multiple code rj called on the patient, and her reportedly expressing she would "jump out the window." Information is gathered from previous documentation and from the patient and is considered to be reliable. Chief Complaint "Yesterday wasn't so good. Today has been much better." History of Present Illness Pat Heath is a 24-year-old female admitted medically after being transferred from [facility] D&A rehabilitation facility due to episodes of syncope. Pt had been sent to [facility] following syncope 4 days prior to admission and was diagnosed with pneumonia and was found to have bilateral PEs. Code Hamm was called on the patient last evening when patient had reported thoughts to "jump out the window". It is reported she had locked herself in the bathroom and was very distressed - curled up under the sink. Pt was agreeable to returning to her bed in exchange for medications to calm racing thoughts. She was given 5mg of haloperidol. [address] warrant was filled out by attending physician due to reports to jump out window and statements made about wanting to "use a knife to cut out her tattoos." Psychiatric consult was ordered to assess patient following this episode and concern for suicidality. Pt is cooperative with this provider as we discuss her presentation to this facility and her history of substance abuse. Pt reports substance use since the age of 15y/o, predominantly opioids. She states, "it wasn't until I was 23 that I realized it was a problem, that's when I decided to center on my sobriety and mental health. Pt reports a previous admission to [facility] in 06/2018. She had 2 months of sobriety following that stay and then relapsed. The relapse was followed by another 4 months of sobriety. She relapsed again, and was admitted to [facility] for treatment. Pt reports she is very frustrated that she is not permitted to return to the facility. The patient's current plan is to return home and attend frequent AA meetings, "I'm off work for the next month, so I could easily go three times a day." Pt feels this will be more helpful than a "detox center" or inpatient rehabilitation, which was this provider's recommendation. Pt states she shared her plan with her , who continues to be supportive of her desire for sobriety. Pt reports a psychiatric history of bipolar disorder, anxiety, and borderline personality disorder. Pt states she questions her bipolar diagnosis, as she does not feel she has ever experienced ana or hypomania, but rather reprieve from her depressive symptoms. Pt states she does feel that the diagnosis of borderline personality disorder is something she identifies with more-so than her bipolar diagnosis. Pt states that her current medication regimen (duloxetin e 60mg, aripiprazole 2mg, and atomoxetine 30mg) has been working "brilliantly". She denies recent history of significant depressive episodes. Pt denies suicidality in the last 6 months, stating "sometimes I feel like life is harder for me than it is for others, and I don't think that's fair. But I don't get suicidal, instead that's when I generally use the drugs." Pt denies SI, HI, SIB, A/V hallucinations, paranoia, ana/hypomania, other symptoms more suggestive of a bipolar presentation, OCD, PTSD, and other specific psychiatric symptoms. Past Psychiatric History Previous Psych History: Reports diagnoses of bipolar disorder, anxiety, and borderline personality disorder. Pt reports 2 previous inpatient psychiatric admissions, both at [facility], last in 06/2018. Pt reports current regular follow-up with her psychiatrist, therapist, and PCP. Allergies Allergy/AdvReac Type Severity Reaction Status Date / Time morphine AdvReac Unknown itchy Unverified 03/03/19 11:06 Home Medications Home Medications Medication Instructions Recorded Confirmed Type amoxicillin-pot clavulanate 1 tab PO BID 03/03/19 03/03/19 History [Augmentin] apixaban [Eliquis] 5 mg PO BID 03/03/19 03/03/19 History aripiprazole [Abilify] 2 mg PO HS 03/03/19 03/03/19 History atomoxetine [Strattera] 30 mg PO QAM 03/03/19 03/03/19 History buprenorphine-naloxone 2 tab SUBLINGUAL UD 03/03/19 03/03/19 History diazepam [Valium] 5 mg PO UD 03/03/19 03/03/19 History duloxetine [Cymbalta] 60 mg PO DAILY 03/03/19 03/03/19 History folic acid 1 mg PO DAILY 03/03/19 03/03/19 History gabapentin 800 mg PO QID 03/03/19 03/03/19 History levetiracetam [Keppra] 500 mg PO BID 03/03/19 03/03/19 History multivitamin 1 tab PO DAILY 03/03/19 03/03/19 History nicotine 1 patch TRANSDERMAL DAILY 03/03/19 03/03/19 History thiamine HCl (vitamin B1) [Vitamin 100 mg PO DAILY 03/03/19 03/03/19 History B-1] trazodone 300 mg PO HS PRN 03/03/19 03/03/19 History Substance Abuse History Reports substance use beginning at the age of 15y/o, predominantly using opioids. 2 admissions for inpatient D&A rehabilitation, both at [facility]. Personal History Living Arrangements: Home (with ) Marital Status: Beliefs That Will Affect Care: None Patient History Medical History IUD (intrauterine device) in place (Chronic) Endometriosis (Chronic) Heart murmur (Chronic) Drug abuse (Chronic) Borderline personality disorder (Chronic) Bipolar disorder (Chronic) Depression with anxiety (Chronic) Bulimia (Chronic) Addiction Surgical History History of exploratory laparotomy (Chronic) Hx of tonsillectomy (Chronic) Social History Communication Ability: Effective Beliefs That Will Affect Care: None marital status: Current Living Situation: Rehab and Other Current Living Situation Comment: [facility] Other Information That Helps Us Care for You: No Feels Safe at Home: Yes Safety Concerns: Feels Safe At This Time Smoking Status: Current every day smoker Hx Alcohol Use: No Hx Substance Use: Yes Physical Exam Psychiatric Orientation: alert, oriented x 3 and cooperative Apperance: appropriately dressed, appropriately groomed and appeared stated age Eye Contact: good eye contact Motor Behavior: no abnormal motor movements (observed while laying in bed) Speech: normal rate/rhythm/volume of speech Affect: euthymic affect and + anxious affect (mildly anxious); no depressed affect Mood: + anxious mood ("I feel good today, a little anxious"); no depressed mood Thought Process: goal directed thought process, linear/logical thought process and clear/coherent thought process Thought Content: reality based without delusions Suicidal Thoughts: denies suicidal thoughts, denies suicidal plan and denies suicidal intent Homicidal Thoughts: denies homicidal thoughts Hallucinations: no auditory hallucinations and no visual hallucinations Cognition: recent memory grossly intact, remote memory grossly intact, attention grossly intact and language grossly intact Estimated Intelligence: average estimated intelligence Insight: + fair insight Judgement: + fair judgement Vital Signs (Past 24 Hours) Last Vital Signs Temp 36.5 C 03/04/19 11:38 Pulse 70 03/04/19 11:38 Resp 18 03/04/19 11:38 BP 102/70 03/04/19 11:38 Pulse Ox 98 03/04/19 11:38 Review of Systems Constitutional: reports some restlessness due to anxiety Cardiovascular: denied Respiratory: denied Gastrointestinal: denied Neurological: denied Psychiatric: denies symptoms other than stated above Total of at least 10 systems reviewed, pertinent positives as above and in HPI. Results & Data Medications Administered Amoxicillin/Clavulanate Potassium (Augmentin 875mg) 1 tab PO BIDM [facility] Stop: 03/09/19 18:59 Last Admin: 03/04/19 12:00 Dose: 1 tab Documented by: [id number] Admin: 03/03/19 19:56 Dose: 1 tab Documented by: [id number] Apixaban (Eliquis) 10 mg PO BID [facility] Stop: 03/10/19 18:59 Last Admin: 03/04/19 12:00 Dose: 10 mg Documented by: [id number] Admin: 03/03/19 19:56 Dose: 10 mg Documented by: [id number] Aripiprazole (Abilify) 2 mg PO HS [facility] Stop: 04/02/19 20:59 Last Admin: 03/03/19 20:33 Dose: 2 mg Documented by: [id number] Buprenorphine/Naloxone (Suboxone 2 Mg/0.5 Mg) 1 tab SL BID [facility]; Taper Stop: 03/07/19 08:59 Last Admin: 03/04/19 11:58 Dose: 1 tab Documented by: [id number] Diazepam (Valium) 5 mg PO TID [facility] Stop: 03/04/19 23:59 Last Admin: 03/04/19 11:58 Dose: 5 mg Documented by: [id number] Admin: 03/03/19 20:32 Dose: 5 mg Documented by: [id number] Folic Acid (Folvite) 1 mg PO DAILY [facility] Stop: 04/03/19 08:59 Last Admin: 03/04/19 11:59 Dose: 1 mg Documented by: [id number] Gabapentin (Neurontin) 800 mg PO QID [facility] Stop: 04/02/19 18:59 Last Admin: 03/04/19 11:57 Dose: 800 mg Documented by: [id number] Admin: 03/03/19 22:46 Dose: 800 mg Documented by: [id number] Admin: 03/03/19 19:57 Dose: 800 mg Documented by: [id number] Levetiracetam (Keppra) 500 mg PO BID [facility] Stop: 04/02/19 20:59 Last Admin: 03/04/19 11:59 Dose: 500 mg Documented by: [id number] Admin: 03/03/19 20:33 Dose: 500 mg Documented by: [id number] Miscellaneous (Remove Nicoderm Patch) 1 ea N/A HS [facility] Stop: 04/03/19 08:58 Last Admin: 03/04/19 11:59 Dose: 1 ea Documented by: [id number] Miscellaneous (Order Awaiting Action) 1 ea N/A QS [facility] Stop: 04/03/19 00:00 Last Admin: 03/04/19 09:42 Dose: Not Given Documented by: [id number] Admin: 03/03/19 23:04 Dose: Not Given Documented by: [id number] Multivitamins (Multivitamin Tab) 1 tab PO DAILY [facility] Stop: 04/03/19 08:59 Last Admin: 03/04/19 12:01 Dose: 1 tab Documented by: [id number] Nicotine (Nicoderm Cq) 14 mg TD QAM [facility] Stop: 04/02/19 18:59 Last Admin: 03/04/19 12:34 Dose: 14 mg Documented by: [id number] Admin: 03/03/19 19:56 Dose: 14 mg Documented by: [id number] Thiamine HCl (Vitamin B-1) 100 mg PO DAILY [facility] Stop: 04/03/19 08:59 Last Admin: 03/04/19 12:00 Dose: 100 mg Documented by: [id number] Trazodone HCl (Desyrel) 300 mg PO HS PRN PRN Reason: Insomnia Stop: 04/02/19 18:12 Last Admin: 03/03/19 22:46 Dose: 300 mg Documented by: [id number] Vitamin B Complex/Folic Acid (Nephrocaps) 1 cap PO DAILY [facility] Stop: 04/02/19 08:59 Last Admin: 03/04/19 12:00 Dose: 1 cap Documented by: [id number]
[2019-03-04 13:15] LABS: BUN Creatinine Ratio 6.8 (10-20); Calcium 9.1 mg/dl (8.5-10.1); Creatinine Clr Calc Pharmacy 95.7 ml/min; Est GFR (African American) 94.7; Est GFR (Non-African American) 81.7; Potassium 3.9 mmol/L (3.5-5.1)
--- NOTE | 2019-03-04 14:51 | Hospitalist Progress Note ---
Date of Service March 04, 2019 Assessment & Plan (1) Syncope: Present to the ER after witness by staff for LOC She said that she did not LOC because she was aware of her surrounding Possible related to drug withdrawal vs vasovagal CT HEAD showed no acute changes No focal neuro deficit Stable (2) Pulmonary embolism, bilateral: CTA showed positive for right and to a lesser extent left central pulmonary emboli. No evidence for a saddle embolus Continue eliquis Clinically stable (3) Pneumonia: CT CHEST showed Consolidative parenchymal infiltrate right upper lobe with associated multifocal nodularity. blood cultures pending Continue Augmentin daily Will need repeat CT chest outpatient in 6-8 weeks to recheck for resolution of consolidative findings on RUL (4) Drug abuse: Hx huffing air duster, last reported use was 3 weeks ago. Snorts Klonopin 20-30 tabs a day as well as snorting methadone, percocet, vicodin, oxy and last reported use was 4 days ago. Pt was to start suboxone taper today. She is currently on valium taper, and Keppra 500mg BID x 21 days for opiate and benzo withdrawal. Spoke to staff at [facility] rehab and no plan to take the patient back due to behavioral problem and non compliant Looking for other detox rehab facility Continue supportive management (5) Depression with anxiety: Hx anxiety, bipolar, borderline personality disorder Continue 1 to 1 observation Psych on board- waiting for input Cymbalta discontinued DVT Prophylaxis On eliquis Disposition Continue 1 to 1 observation Subjective Pt was seen and examined Lying in bed with no distress with 1 to 1 sitter Pt has been sleeping alot this morning Pt said that she feels fine Pt said that she did not lose any consciousness She denies any hallucination, suicidal thought, sob and chest pain Physical Exam Vital Signs (Past 24 Hours): Last Vital Signs Temp 36.5 C 03/04/19 11:38 Pulse 70 03/04/19 11:38 Resp 18 03/04/19 11:38 BP 102/70 03/04/19 11:38 Pulse Ox 98 03/04/19 11:38 Physical Exam: General- No acute distress Head- atraumatic Eyes- PERRL, EOMI, ENT- oropharynx clear Neck- supple, no JVD Lungs- clear to auscultation Heart- regular rhythm Abdomen- normal bowel sounds, soft, nontender Extremities- no calf tenderness Neuro- alert, oriented x 3; PERRL, EOMI; no facial palsy; no dysarthria Skin- warm & dry (1) Syncope Syncope type: unspecified Qualified Code(s): R55 - Syncope and collapse
[2019-03-04 18:00] LABS: Pregnancy Test, Urine Negative (Negative)
[2019-03-04 18:36] LABS: Amphetamines+Metham, Urine Neg (Neg); Barbiturates, Urine Neg (Neg); Benzodiazepine, Urine Pos (Neg); Cocaine, Urine Neg (Neg); MDMA (Ecstacy), Urine Neg (Neg); Methadone, Urine Neg (Neg); Opiate, Urine Neg (Neg); Phencyclidine, Urine Neg (Neg)
[2019-03-04] MEDS: ACETAMINOPHEN 325 MG TAB PO PRN ×2 (18:47→23:20)
[2019-03-04] MEDS: KETOROLAC TROMETHAMINE 15 MG/ML VIAL IM PRN (19:28)
[2019-03-04] MEDS: ARIPIprazole 1 MG/ML ORAL SOLN 150 ML BTL PO SCH (20:59)
[2019-03-05] MEDS ORDERED: KETOROLAC TROMETHAMINE 15 MG/ML VIAL IM STA (02:22)
[2019-03-05] MEDS: GABAPENTIN 800 MG TAB PO SCH ×4 (09:09→21:10)
[2019-03-05] MEDS: levETIRAcetam 500 MG TAB PO SCH ×2 (09:09→21:10)
[2019-03-05] MEDS: AMOXICILLIN/CLAVULANATE 875 MG TAB PO SCH ×2 (09:09→16:22)
[2019-03-05] MEDS: MULTIVITAMIN TAB PO SCH (09:10)
[2019-03-05] MEDS: APIXABAN 5 MG TABLET PO SCH ×2 (09:10→21:09)
[2019-03-05] MEDS: FOLIC ACID 1 MG TAB PO SCH (09:10)
[2019-03-05] MEDS: NEPHROCAPS PO SCH (09:10)
[2019-03-05] MEDS: THIAMINE HCL 100 MG TAB PO SCH (09:10)
[2019-03-05] MEDS: NICOTINE 14 MG/24 HR PATCH TD SCH (09:11)
[2019-03-05] MEDS: diazePAM 5 MG TABLET PO SCH ×2 (09:18→21:14)
[2019-03-05] MEDS: ACETAMINOPHEN 325 MG TAB PO PRN ×2 (09:21→16:21)
[2019-03-05] MEDS: BUPRENORPHINE/NALOXONE 2/0.5MG 1 TAB SL SCH ×2 (09:49→21:35)
[2019-03-05] MEDS: KETOROLAC TROMETHAMINE 15 MG/ML VIAL IM PRN (17:21)
--- NOTE | 2019-03-05 19:35 | Hospitalist Progress Note ---
Date of Service March 05, 2019 Assessment & Plan (1) Syncope: Present to the ER after witness by staff for LOC She said that she did not LOC because she was aware of her surrounding Possible related to drug withdrawal vs vasovagal CT HEAD showed no acute changes No focal neuro deficit Stable (2) Pulmonary embolism, bilateral: CTA showed positive for right and to a lesser extent left central pulmonary emboli. No evidence for a saddle embolus Continue eliquis Clinically stable (3) Pneumonia: CT CHEST showed Consolidative parenchymal infiltrate right upper lobe with associated multifocal nodularity. blood cultures pending Will need repeat CT chest outpatient in 6-8 weeks to recheck for resolution of consolidative findings on RUL Continue Augmentin BID (4) Drug abuse: Hx huffing air duster, last reported use was 3 weeks ago. Snorts Klonopin 20-30 tabs a day as well as snorting methadone, percocet, vicodin, oxy and last reported use was 4 days ago. Pt was to start suboxone taper today. She is currently on valium taper, and Keppra 500mg BID x 21 days for opiate and benzo withdrawal. Spoke to staff at [facility] reh and no plan to take the patient back due to behavioral problem and non compliant Looking for other detox rehab facility Pt does not want to go to the facility in [place] for detox because it is too far Advised pt to go to rehab to detox medically stable to discharge (5) Depression with anxiety: Hx anxiety, bipolar, borderline personality disorder Continue 1 to 1 observation case discussed with psych recommended to resume Cymbalta and to add benadryl for anxiety No suicidal thought Does not meet criteria for inpatient psychiatric admission OK from psych standpoint to discharge DVT Prophylaxis On eliquis Disposition Discharge tomorrow Subjective Pt was seen and examined Lying in bed with no distress with 1 to 1 sitter Pt was found by BENEFITS TECHNICIAN sitting on the bathroom floor She said that she was trying to to have a BM She said that she did not LOC Denies any pain, and no bruises found Pt has been changing her mind about to go to rehab She does not want to go to the place in [place] for rehab to get detox trimming caser gave her info about places to call she said that she would try to look for a detox place She said that if she cannot find a place to take her that is in [place], she would go back to do drug again I advised pt to go to any place that willing to help her detox, she said that she cannot go far because she just got a new apartment and she will need to work to pay for the rent I told the pt that she is medically cleared Pt said that she will get a ride tomorrow from her friend to come to take her Denies any chest pain, palpitation and SOB Physical Exam Vital Signs (Past 24 Hours): Last Vital Signs Temp 36.5 C 03/05/19 18:41 Pulse 78 03/05/19 18:41 Resp 20 03/05/19 18:41 BP 101/69 03/05/19 18:41 Pulse Ox 100 03/05/19 18:41 Physical Exam: General- No acute distress Head- atraumatic Eyes- PERRL, EOMI, ENT- oropharynx clear Neck- supple, no JVD Lungs- clear to auscultation Heart- regular rhythm Abdomen- normal bowel sounds, soft, nontender Extremities- no calf tenderness Neuro- alert, oriented x 3; PERRL, EOMI; no facial palsy; no dysarthria Skin- warm & dry (1) Syncope Syncope type: unspecified Qualified Code(s): R55 - Syncope and collapse
[2019-03-05] MEDS: ARIPIprazole 1 MG/ML ORAL SOLN 150 ML BTL PO SCH (21:09)
[2019-03-06] MEDS: KETOROLAC TROMETHAMINE 15 MG/ML VIAL IM PRN (06:02)
[2019-03-06] MEDS: AMOXICILLIN/CLAVULANATE 875 MG TAB PO SCH ×2 (09:00→18:27)
[2019-03-06] MEDS: NICOTINE 14 MG/24 HR PATCH TD SCH (09:00)
[2019-03-06] MEDS: THIAMINE HCL 100 MG TAB PO SCH (09:00)
[2019-03-06] MEDS: FOLIC ACID 1 MG TAB PO SCH (09:00)
[2019-03-06] MEDS: DULOXETINE HCL 60 MG CAP PO SCH (09:00)
[2019-03-06] MEDS: GABAPENTIN 800 MG TAB PO SCH ×4 (09:00→20:47)
[2019-03-06] MEDS: diazePAM 5 MG TABLET PO SCH ×2 (09:00→20:47)
[2019-03-06] MEDS: MULTIVITAMIN TAB PO SCH (09:00)
[2019-03-06] MEDS: NEPHROCAPS PO SCH (09:00)
[2019-03-06] MEDS: levETIRAcetam 500 MG TAB PO SCH ×2 (09:00→20:46)
[2019-03-06] MEDS: APIXABAN 5 MG TABLET PO SCH ×2 (09:01→20:45)
[2019-03-06] MEDS: BUPRENORPHINE/NALOXONE 2/0.5MG 1 TAB SL SCH ×2 (09:37→20:47)
[2019-03-06] MEDS: ACETAMINOPHEN 325 MG TAB PO PRN (14:34)
--- NOTE | 2019-03-06 18:05 | Hospitalist Progress Note ---
Date of Service March 06, 2019 Assessment & Plan (1) Syncope: Present to the ER after witness by staff for LOC She said that she did not LOC because she was aware of her surrounding Possible related to drug withdrawal vs vasovagal CT HEAD showed no acute changes No focal neuro deficit Medically stable (2) Pulmonary embolism, bilateral: CTA showed positive for right and to a lesser extent left central pulmonary emboli. No evidence for a saddle embolus Continue eliquis Clinically stable (3) Pneumonia: CT CHEST showed Consolidative parenchymal infiltrate right upper lobe with associated multifocal nodularity. blood cultures pending Will need repeat CT chest outpatient in 6-8 weeks to recheck for resolution of consolidative findings on RUL Continue Augmentin BID to complete 7 days course of abx (4) Drug abuse: Hx huffing air duster, last reported use was 3 weeks ago. Snorts Klonopin 20-30 tabs a day as well as snorting methadone, percocet, vicodin, oxy and last reported use was 4 days ago. Pt was to start suboxone taper today. She is currently on valium taper, and Keppra 500mg BID x 21 days for opiate and benzo withdrawal. Spoke to staff at [facility] rehab and no plan to take the patient back due to behavioral problem and non compliant Looking for other detox rehab facility Pt does not want to go to the facility in [place] for detox because it is too far Advised pt to go to rehab to detox medically stable to discharge Will need to get to rehab to detox (5) Depression with anxiety: Hx anxiety, bipolar, borderline personality disorder Continue 1 to 1 observation case discussed with psych recommended to resume Cymbalta and to add benadryl for anxiety No suicidal thought Does not meet criteria for inpatient psychiatric admission OK from psych standpoint to discharge DVT Prophylaxis On eliquis Disposition Waiting for rehab to [facility] Subjective Pt was seen and examined Lying in bed with no distress Pt said that she feels fine Denies any new symptoms Physical Exam Vital Signs (Past 24 Hours): Last Vital Signs Temp 36.8 C 03/06/19 15:05 Pulse 89 03/06/19 15:05 Resp 20 03/06/19 15:05 BP 93/56 L 03/06/19 15:05 Pulse Ox 99 03/06/19 15:05 Physical Exam: General- No acute distress Head- atraumatic Eyes- PERRL, EOMI, ENT- oropharynx clear Neck- supple, no JVD Lungs- clear to auscultation Heart- regular rhythm Abdomen- normal bowel sounds, soft, nontender Extremities- no calf tenderness Neuro- alert, oriented x 3; PERRL, EOMI; no facial palsy; no dysarthria Skin- warm & dry (1) Syncope Syncope type: unspecified Qualified Code(s): R55 - Syncope and collapse
[2019-03-06] MEDS: ARIPIprazole 1 MG/ML ORAL SOLN 150 ML BTL PO SCH (20:45)
[2019-03-06] MEDS ORDERED: XOPENEX/ATROVENT 1.25mg/0.5MG NEB COMBO NEB PRN (20:58)
[2019-03-06] MEDS ORDERED: IPRATROPIUM BROMIDE NEB SOLN 0.02% 2.5 ML VIAL INH PRN (21:00)
[2019-03-06] MEDS ORDERED: LEVALBUTEROL 1.25MG/0.5ML NEB INH PRN (21:00)
--- NOTE | 2019-03-06 21:28 | XRay Report ---
SINGLE VIEW CHEST CLINICAL HISTORY: Dyspnea. FINDINGS: An AP, portable, upright chest radiograph is compared to chest x-ray and chest CT dated 02/22. The cardiomediastinal silhouette is unremarkable. Right upper lobe airspace consolidation per sists. The lungs are otherwise clear. No large pleural effusion or pneumothorax is seen. The bony tho rax is grossly intact. IMPRESSION: 1. There is persistent right upper lobe consolidation. 2. The lungs are otherwise clear. Electronically signed by: Sundar Verma M.D. 03/06/2019 9:27 PM
[2019-03-07] MEDS: levETIRAcetam 500 MG TAB PO SCH ×2 (09:03→21:29)
[2019-03-07] MEDS: GABAPENTIN 800 MG TAB PO SCH ×4 (09:03→21:30)
[2019-03-07] MEDS: MULTIVITAMIN TAB PO SCH (09:04)
[2019-03-07] MEDS: AMOXICILLIN/CLAVULANATE 875 MG TAB PO SCH ×2 (09:04→17:07)
[2019-03-07] MEDS: diazePAM 5 MG TABLET PO SCH ×2 (09:04→21:28)
[2019-03-07] MEDS: FOLIC ACID 1 MG TAB PO SCH (09:04)
[2019-03-07] MEDS: NEPHROCAPS PO SCH (09:04)
[2019-03-07] MEDS: APIXABAN 5 MG TABLET PO SCH ×2 (09:04→21:29)
[2019-03-07] MEDS: THIAMINE HCL 100 MG TAB PO SCH (09:04)
[2019-03-07] MEDS: NICOTINE 14 MG/24 HR PATCH TD SCH (09:04)
[2019-03-07] MEDS: ACETAMINOPHEN 325 MG TAB PO PRN ×2 (09:12→13:00)
[2019-03-07] MEDS: DULOXETINE HCL 60 MG CAP PO SCH (10:02)
[2019-03-07] MEDS ORDERED: KETOROLAC TROMETHAMINE 15 MG/ML VIAL IM PRN (12:47)
[2019-03-07] MEDS: DOCUSATE SODIUM/SENNA 50/8.6MG TAB PO SCH (12:57)
--- NOTE | 2019-03-07 19:21 | Hospitalist Progress Note ---
Date of Service March 07, 2019 Assessment & Plan (1) Syncope: Present to the ER after witness by staff for LOC She said that she did not LOC because she was aware of her surrounding Possible related to drug withdrawal vs vasovagal CT HEAD showed no acute changes No focal neuro deficit Medically stable (2) Pulmonary embolism, bilateral: CTA showed positive for right and to a lesser extent left central pulmonary emboli. No evidence for a saddle embolus Continue eliquis Clinically stable (3) Pneumonia: CT CHEST showed Consolidative parenchymal infiltrate right upper lobe with associated multifocal nodularity. blood cultures pending Will need repeat CT chest outpatient in 6-8 weeks to recheck for resolution of consolidative findings on RUL Continue Augmentin BID to complete 7 days course of abx (4) Drug abuse: Hx huffing air duster, last reported use was 3 weeks ago. Snorts Klonopin 20-30 tabs a day as well as snorting methadone, percocet, vicodin, oxy and last reported use was 4 days ago. Pt was to start suboxone taper today. She is currently on valium taper, and Keppra 500mg BID x 21 days for opiate and benzo withdrawal. Spoke to staff at [facility] rehab and no plan to take the patient back due to behavioral problem and non compliant Looking for other detox rehab facility Pt does not want to go to the facility in [place] for detox because it is too far Advised pt to go to rehab to detox medically stable to discharge Waiting to hear from [facility] get to rehab for detox (5) Depression with anxiety: Hx anxiety, bipolar, borderline personality disorder Continue 1 to 1 observation case discussed with psych recommended to resume Cymbalta and to add benadryl for anxiety No suicidal thought Does not meet criteria for inpatient psychiatric admission OK from psych standpoint to discharge DVT Prophylaxis On eliquis Disposition Waiting for rehab to discharge Subjective Pt was seen and examined Lying in bed with no distress Pt said that she feels sick because she did not get her suboxone this morning Continue to wait for placement Denies any chest pain, palpitation and SOB Physical Exam Vital Signs (Past 24 Hours): Last Vital Signs Temp 36.6 C 03/07/19 07:46 Pulse 91 H 03/07/19 07:46 Resp 18 03/07/19 07:46 BP 102/67 03/07/19 07:46 Pulse Ox 98 03/07/19 07:46 Physical Exam: General- No acute distress Head- atraumatic Eyes- PERRL, EOMI, ENT- oropharynx clear Neck- supple, no JVD Lungs- clear to auscultation Heart- regular rhythm Abdomen- normal bowel sounds, soft, nontender Extremities- no calf tenderness Neuro- alert, oriented x 3; PERRL, EOMI; no facial palsy; no dysarthria Skin- warm & dry (1) Syncope Syncope type: unspecified Qualified Code(s): R55 - Syncope and collapse
[2019-03-07] MEDS ORDERED: LORazepam 2 MG/ML VIAL (IM USE) IM STA ×2 (19:59→20:05)
[2019-03-07] MEDS ORDERED: BUPRENORPHINE/NALOXONE 2/0.5MG 1 TAB SL ONE (20:00)
[2019-03-07] MEDS ORDERED: LORazepam 2 MG/4 ML VIAL ONE (20:02)
[2019-03-07] MEDS: ARIPIprazole 1 MG/ML ORAL SOLN 150 ML BTL PO SCH (21:32)
[2019-03-07] MEDS ORDERED: OLANZapine 10 MG/2.1 ML SDV IM STA (23:02)
[2019-03-08] MEDS: NICOTINE 14 MG/24 HR PATCH TD SCH (08:23)
[2019-03-08] MEDS: DULOXETINE HCL 60 MG CAP PO SCH (08:23)
[2019-03-08] MEDS: NEPHROCAPS PO SCH (08:23)
[2019-03-08] MEDS: GABAPENTIN 800 MG TAB PO SCH ×4 (08:23→21:11)
[2019-03-08] MEDS: levETIRAcetam 500 MG TAB PO SCH ×2 (08:23→21:10)
[2019-03-08] MEDS: MULTIVITAMIN TAB PO SCH (08:23)
[2019-03-08] MEDS: THIAMINE HCL 100 MG TAB PO SCH (08:23)
[2019-03-08] MEDS: AMOXICILLIN/CLAVULANATE 875 MG TAB PO SCH ×2 (08:23→17:18)
[2019-03-08] MEDS: FOLIC ACID 1 MG TAB PO SCH (08:23)
[2019-03-08] MEDS: DOCUSATE SODIUM/SENNA 50/8.6MG TAB PO SCH (08:23)
[2019-03-08] MEDS: APIXABAN 5 MG TABLET PO SCH ×2 (08:23→21:11)
--- NOTE | 2019-03-08 11:08 | Hospitalist Progress Note ---
Date of Service March 08, 2019 Assessment & Plan (1) Syncope: Present to the ER after witness by staff for LOC She said that she did not LOC because she was aware of her surrounding Possible related to drug withdrawal vs vasovagal CT HEAD showed no acute changes No focal neuro deficit Medically stable (2) Pulmonary embolism, bilateral: CTA showed positive for right and to a lesser extent left central pulmonary emboli. No evidence for a saddle embolus Continue juanitais Advised pt to avoid any activities that put her at risk of fall Clinically stable (3) Pneumonia: CT CHEST showed Consolidative parenchymal infiltrate right upper lobe with associated multifocal nodularity. blood cultures no growth Will need repeat CT chest outpatient in 6-8 weeks to recheck for resolution of consolidative findings on RUL Continue Augmentin BID to complete 7 days course of abx (4) Drug abuse: Hx huffing air duster, last reported use was 3 weeks ago. Snorts Klonopin 20-30 tabs a day as well as snorting methadone, percocet, vicodin, oxy and last reported use was 4 days ago. Pt was to start suboxone taper today. She is currently on valium taper, and Keppra 500mg BID x 21 days for opiate and benzo withdrawal. Spoke to staff at [facility] rehab and no plan to take the patient back due to behavioral problem and non compliant Looking for other detox rehab facility Pt does not want to go to the facility in [place] for detox because it is too far Advised pt to go to rehab to detox medically stable to discharge Spoke to repair department manager at [facility] and pt was denied to get back to [facility] for clinical rehab liaison said that pt will need a more restraint rewinder operator helper said that pt is non compliant and had many behavior problems She said that she tried to get her at a facility to [place], but pt refused to go I mentioned to the Operation Shift Supervisor that week staff said that they could provide transportation to drop her to her house to [place] Will discharge pt today since [facility] refused to take her back and pt refused to go to other facility (5) Depression with anxiety: Hx anxiety, bipolar, borderline personality disorder On 1 to 1 observation Yesterday had code silverman Case discussed with psych last week recommended to resume Cymbalta and to add benadryl for anxiety No suicidal thought Does not meet criteria for inpatient psychiatric admission as per psych team OK from psych standpoint to discharge last week Discussed with Psych liaison nurse and would like psych to reevalutate the pt again before signing for the 302 Or psych can sign to d/c the 302 since pt was evaluate by psych team and stable from psych standpoint to discharge case discussed with psych team Ok stable from psych to discharge home. 302 form signed after discussed with psych team that pt is stable from psych standpoint. DVT Prophylaxis On eliquis Disposition Will discharge today Scripts printed only for 15days mostly due to risk of abuse Subjective Pt was seen and examined Lying in bed with no distress Pt said that she feels very anxious Pt had a code silverman yesterday and was restraint last night She said that she did not feels well last night She said that she feels much better this morning She just had her hair straightening this morning She is hoping that she can go to [facility] for rehab I spoke to repair department manager at [facility] rehab They will not accept her back Operation Shift Supervisor said that pt will need a more restraint rewinder operator helper said that pt is non compliant and had many behavior problems repair department manager said that they tried to get her to a place in [place], she refused to go I made the repair department manager awared that pt is medically stable and I will discharge her today Pt denies any chest pain, palpitation, dizziness and SOB Physical Exam Vital Signs (Past 24 Hours): Last Vital Signs Temp 36.3 C L 03/08/19 07:15 Pulse 76 03/08/19 07:15 Resp 20 03/08/19 07:15 BP 91/62 L 03/08/19 07:15 Pulse Ox 100 03/08/19 07:15 Physical Exam: General- No acute distress Head- atraumatic Eyes- PERRL, EOMI, ENT- oropharynx clear Neck- supple, no JVD Lungs- clear to auscultation Heart- regular rhythm Abdomen- normal bowel sounds, soft, nontender Extremities- no calf tenderness Neuro- alert, oriented x 3; PERRL, EOMI; no facial palsy; no dysarthria Skin- warm & dry (1) Syncope Syncope type: unspecified Qualified Code(s): R55 - Syncope and collapse
--- NOTE | 2019-03-08 17:40 | Communication Note ---
Date of Service: March 08, 2019 Received call from attending, Dr. Matt, to communicate that the patient is medically cleared and he planned to discharge today as is coming from [place] to pick her up. He reports that the patient was voicing anxiety and before signing off on the 302, he wanted an opinion re: her readiness for discharge. Psych liaison nurse Saritha met with the patient and reported to me that the patient is denying suicidality/homicidality/psychosis. She is endorsing anxiety and thoughts to self injure to relieve her stress. The patient told Saritha that she was a "pill head" and wanted meds to numb herself or she would flip out. Saritha managed her behaviorally and the patient was able to maintain control. They reviewed the patient's safety plan which includes seeing her sponsor at home tomorrow, attending NA/AA, and making an appt with her psychiatrist. She will be in the company of her who is driving here to pick her up. It is my opinion that the patient is psychiatrically stable for discharge given that she has a reasonable safety plan, is refusing the recommended rehab treatment, and will be in the company of her . Dr. Martin has personally been involved in the review of these recommendations.
[2019-03-08] MEDS ORDERED: BUPRENORPHINE/NALOXONE 2/0.5MG 1 TAB SL SCH (21:00)
[2019-03-08] MEDS ORDERED: diazePAM 5 MG TABLET PO SCH (21:00)
[2019-03-08] MEDS: ARIPIprazole 1 MG/ML ORAL SOLN 150 ML BTL PO SCH (21:10)
[2019-03-09 01:55] LABS: 7-Aminoclonaz, Confirm 93 NG/ML (CUTOFF=25); Hydro-Alp Ur, GC/MS NEGATIVE NG/ML (CUTOFF=25); Hydroxyethylflurazepam, Conf NEGATIVE NG/ML (CUTOFF=50); Hydroxytriazolam NEGATIVE NG/ML (CUTOFF=50); Lorazepam, Ur GC/MS 519 NG/ML (CUTOFF=50); Marijuana Quant, GCMS Urine 45 NG/ML (CUTOFF=5); Nordiazepam, Confirm 139 NG/ML (CUTOFF=50); Oxazepam Ur, GC/MS NEGATIVE NG/ML (CUTOFF=50); Temazepam, Confirm 185 NG/ML (CUTOFF=50)
--- NOTE | 2019-03-16 08:03 | Discharge Summary ---
Date of Service March 08, 2019 Admission HPI Per Admitting Provider Pat Heath is a 24-year-old female admitted medically after being transferred from [facility] facility due to episodes of syncope. Pt had been sent to [facility] following syncope 4 days prior to admission and was diagnosed with pneumonia and was found to have bilateral PEs. Rachel Hamm was called on the patient last evening when patient had reported thoughts to "jump out the window". It is reported she had locked herself in the bathroom and was very distressed - curled up under the sink. Pt was agreeable to returning to her bed in exchange for medications to calm racing thoughts. She was given 5mg of haloperidol. [address] warrant was filled out by attending physician due to reports to jump out window and statements made about wanting to "use a knife to cut out her tattoos." Psychiatric consult was ordered to assess patient following this episode and concern for suicidality. Pt is cooperative with this provider as we discuss her presentation to this facility and her history of substance abuse. Pt reports substance use since the age of 15y/o, predominantly opioids. She states, "it wasn't until I was 23 that I realized it was a problem, that's when I decided to center on my sobriety and mental health. Pt reports a previous admission to [facility] in 06/2018. She had 2 months of sobriety following that stay and then relapsed. The relapse was followed by another 4 months of sobriety. She relapsed again, and was admitted to [facility] for treatment. Pt reports she is very frustrated that she is not permitted to return to the facility. The patient's current plan is to return home and attend frequent AA meetings, "I'm off work for the next month, so I could easily go three times a day." Pt feels this will be more helpful than a "detox center" or inpatient rehabilitation, which was this provider's recommendation. Pt states she shared her plan with her , who continues to be supportive of her desire for sobriety. Pt reports a psychiatric history of bipolar disorder, anxiety, and borderline personality disorder. Pt states she questions her bipolar diagnosis, as she does not feel she has ever experienced ana or hypomania, but rather reprieve from her depressive symptoms. Pt states she does feel that the diagnosis of borderline personality disorder is something she identifies with more-so than her bipolar diagnosis. Pt states that her current medication regimen (duloxetine 60mg, aripiprazole 2mg, and atomoxetine 30mg) has been working "brilliantly". She denies recent history of significant depressive episodes. Pt denies suicidality in the last 6 months, stating "sometimes I feel like life is harder for me than it is for others, and I don't think that's fair. But I don't get suicidal, instead that's when I generally use the drugs." Pt denies SI, HI, SIB, A/V hallucinations, paranoia, ana/hypomania, other symptoms more suggestive of a bipolar presentation, OCD, PTSD, and other specific psychiatric symptoms. Admission Exam Per Admitting Provider General: no acute distress, WDWN Head: normocephalic, atraumatic Eyes: PERRL, EOM's intact, conjunctiva non-injected, anicteric ENT: normal inspection external ears, nose, mucous membranes dry Neck: supple, trachea midline Lungs: clear, no respiratory distress, no wheezing/rhonchi/rales CV: RRR, systolic murmur Abd: normal BS, soft, non-tender to palpation Ext: no cyanosis, no calf tenderness, right calf appears slightly larger than left Neuro: A&O x 3, no focal deficits noted, normal affect Skin: warm, dry Principal Diagnosis Syncope Pulmonary embolism, bilateral Pneumonia Depression/Anxiety Discharge Exam General- No acute distress Head- atraumatic Eyes- PERRL, EOMI, ENT- oropharynx clear Neck- supple, no JVD Lungs- clear to auscultation Heart- regular rhythm Abdomen- normal bowel sounds, soft, nontender Extremities- no calf tenderness Neuro- alert, oriented x 3; PERRL, EOMI; no facial palsy; no dysarthria Skin- warm & dry Discharge Data Allergies Allergy/AdvReac Type Severity Reaction Status Date / Time morphine AdvReac Unknown itchy Unverified 03/03/19 11:06 Consultations 03/03/19 13:14 ED Decision to Admit Stat 03/03/19 18:13 Consult Case Management - Discharge Planning Routine Consult Health Information Management Routine 03/03/19 20:42 Consult Psychiatry Routine Ordered Studies 03/03/19 10:31 CT angio chest PE protocol Stat 03/03/19 10:32 CT head/brain wo con Stat CT angio chest PE protocol CT DOSE: 1022.56 mGy.cm HISTORY: Chest pain PE TECHNIQUE: Multiaxial CT images of the chest were performed following the intravenous administration of contrast to evaluate the pulmonary arteries. Maximal intensity projection images were also obtained. A dose lowering technique was utilized adhering to the principles of ALARA. COMPARISON STUDY: None. FINDINGS: Study is positive for pulmonary emboli involving the distal right main pulmonary artery as well as all major arterial involvement of the proximal right upper and right lower lobe pulmonary arterial structures. No evidence for a saddle embolus. Pulmonary arterial structures of the left hemithorax enhance appropriately. There is, however a second order filling defect involving the mid left perihilar pulmonary arterial vasculature. There is no evidence for a saddle embolus. There is a consolidative infiltrative process of the right upper lobe at the right apical region with associated underlying somewhat nodular component. Lungs otherwise appear clear. Minimal bibasilar atelectasis. IMPRESSION: 1. Study is positive for right and to a lesser extent left central pulmonary emboli. 2. No evidence for a saddle embolus 3. Consolidative parenchymal infiltrate right upper lobe with associated multifocal nodularity. 4. CT should be repeated a later date to ensure complete resolution of the right upper lobe findings. The above report was generated using voice recognition software. It may contain grammatical, syntax or spelling errors. Electronically signed by: Arvin Ford M.D. 03/03/2019 1:03 PM Dictated: 03/03/19 1257 Transcribed: 03/03/19 1257 XR chest 1V portable HISTORY: 24 years-old Female syncope acute syncope COMPARISON: None available TECHNIQUE: Portable AP view of the chest FINDINGS: The cardiomediastinal and hilar silhouettes are within normal limits. Asymmetric alveolar opacities are noted about the right upper lobe. Cardiomediastinal and hilar silhouettes are within normal limits. No pneumothorax, pleural effusion or overt pulmonary edema. Bones of the chest appear normal. IMPRESSION: Alveolar opacities of the right upper lobe are suspicious for pneumonia in the appropriate clinical setting. The above report was generated using voice recognition software. It may contain grammatical, syntax or spelling errors. Electronically signed by: Eliecer Dawson M.D. 03/03/2019 10:48 AM Dictated: 04/10/19 1046 Transcribed: 03/03/191045 CT head/brain wo con CT DOSE: HISTORY: Mental status change syncope TECHNIQUE: Multiaxial CT images of the head were performed without the use of intravenous contrast. A dose lowering technique was utilized adhering to the principles of ALARA. Comparison: None. Findings: The paranasal sinuses and mastoid air cells are clear. The calvarium and skull base are intact. The ventricles and sulci are within normal limits. There is no mass, hematoma, midline shift, or acute infarct. Impression: No acute intracranial abnormality. The above report was generated using voice recognition software. It may contain grammatical, syntax or spelling errors. Electronically signed by: Arvin Ford M.D. 03/03/2019 12:56 PM Dictated: 03/03/191254 Transcribed: 03/03/191254 SINGLE VIEW CHEST CLINICAL HISTORY: Dyspnea. FINDINGS: An AP, portable, upright chest radiograph is compared to chest x-ray and chest CT dated 03/03/2019. The cardiomediastinal silhouette is unremarkable. Right upper lobe airspace consolidation persists. The lungs are otherwise clear. No large pleural effusion or pneumothorax is seen. The bony thorax is grossly intact. IMPRESSION: 1. There is persistent right upper lobe consolidation. 2. The lungs are otherwise clear. Electronically signed by: Sundar Verma M.D. 03/06/2019 9:27 PM Dictated: 03/06/192125 Transcribed: 03/06/192125 Hospital Course (1) Syncope: Present to the ER after witness by staff for LOC She said that she did not LOC because she was aware of her surrounding Possible related to drug withdrawal vs vasovagal CT HEAD showed no acute changes No focal neuro deficit Medically stable (2) Pulmonary embolism, bilateral: CTA showed positive for right and to a lesser extent left central pulmo nary emboli. No evidence for a saddle embolus Continue eliquis Advised pt to avoid any activities that put her at risk of fall Clinically stable (3) Pneumonia: CT CHEST showed Consolidative parenchymal infiltrate right upper lobe with associated multifocal nodularity. blood cultures no growth Will need repeat CT chest outpatient in 6-8 weeks to recheck for resolution of consolidative findings on RUL Continue Augmentin BID to complete 7 days course of abx (4) Drug abuse: Hx huffing air duster, last reported use was 3 weeks ago. Snorts Klonopin 20-30 tabs a day as well as snorting methadone, percocet, vicodin, oxy and last reported use was 4 days ago. Pt was to start suboxone taper today. She is currently on valium taper, and Keppra 500mg BID x 21 days for opiate and benzo withdrawal. [facility] and no plan to take the patient back due to behavioral problem and non compliant Looking for other detox rehab facility Pt does not want to go to the facility in [place] for detox because it is too far Advised pt to go to rehab to detox medically stable to discharge Spoke to biofuels product manager at [facility] and pt was denied to get back to [facility] for rehabilitation center manager said that pt will need a more restraint storage facility housekeeper said that pt is non compliant and had many behavior problems She said that she tried to get her at a facility to [place], but pt refused to go I mentioned to the [facility] that week staff said that they could provide transportation to drop her to her house to [place] Will discharge pt today since [facility] refused to take her back and pt refused to go to other facility (5) Depression with anxiety: Hx anxiety, bipolar, borderline personality disorder On 1 to 1 observation Yesterday had code silverman Case discussed with psych last week recommended to resume Cymbalta and to add benadryl for anxiety No suicidal thought Does not meet criteria for inpatient psychiatric admission as per psych team OK from psych standpoint to discharge last week Discussed with Psych liaison nurse and would like psych to reevalutate the pt again before signing for the 302 Or psych can sign to d/c the 302 since pt was evaluate by psych team and stable from psych standpoint to discharge case discussed with psych team Ok stable from psych to discharge home. 302 form signed after discussed with psych team that pt is stable from psych standpoint. DVT Prophylaxis On eliquis Disposition Will discharge today Scripts printed only for 15days mostly due to risk of abuse Total Time Total Time Spent Total Time Spent (In Minutes): 35 minutes Total Time Includes: Examination of the Patient, Discharge Planning, Medication Reconciliation, Communication With Other Providers and Other Discharge Plan Discharge Items Patient Disposition: Home - Self-Care Reason For Visit: PE,SYNCOPE Discharge Diagnosis: Syncope Pulmonary embolism, bilateral Pneumonia Depression/Anxiety Discharge Goals: Decrease discomfort, Improve disease control, Improve function and Increase independence Activity: Resume your previous activity Weightbearing Comment: As tolerated Non-emergency contact: Primary Care Provider Call non-emergency contact if: you have any medication questions, your symptoms worsen and your pain is worsening Follow-up/Referrals: PCP,NO [Primary Care Provider] - Diet: Regular Addtl Provider Instructions: Follow up with your primary care provider in 1 week Follow up with your psychiatrist doctor Please call detox rehab facilities to get help for multiple substances abuse Fall precaution Avoid any activity that increase the risks for fall Complete the course of the antibiotic tomorrow Seek medical attention if you develop any suicidal thought or want to harm yourself Medication Instructions: Eliquis Your condition is typically treated with an anticoagulant. Anticoagulants will thin your blood to help prevent new clots. You should take her medication exactly as directed. Never skip a dose. Never take a double dose. If you miss a dose, take it as soon as you remember. Avoid NSAIDs (Motrin, Aleve, Naproxen, Ibuprofen, Advil, Meloxicam,..) due to risks of bleeding Call your Primary Care doctor if you experience any of the following: Swelling or Pain in your leg Sudden, continuous pain deep in a muscle Pain that worsens when you are active or when you stand still for a long time Chest Pain Sudden Shortness of Breath Rapid or pounding heart beat Fainting Dizziness Cough with blood or bloody sputum Sweating more than normal Bruises Heavy or uncontrolled bleeding Blood in your urine, stool or vomit Black or tarry stools Caring for Your Self at Home: Avoid sitting, standing or lying down for long periods without moving your legs and feet When traveling by car, stop to get out and move around at least once every 3 hours On long airplane, train or bus rides, get up and move around when possible If you can't get up, wiggle your toes and tighten your calves to keep your blood moving Follow Up: It is important for you to keep your follow up appointments with your medical provider. Prescriptions: New diphenhydramine HCl [Benadryl] 25 mg Capsule 25 mg PO Q8H PRN (Reason: anxiety) Qty: 10 RF: 0 levetiracetam [Keppra] 500 mg Tablet 500 mg PO BID 15 Days Qty: 30 RF: 0 thiamine HCl (vitamin B1) [Vitamin B-1] 100 mg Tablet 100 mg PO DAILY 30 Days Qty: 30 RF: 0 gabapentin 800 mg Tablet 800 mg PO QID Qty: 30 RF: 0 folic acid 1 mg Tablet 1 mg PO DAILY 30 Days Qty: 30 RF: 0 duloxetine [Cymbalta] 60 mg Capsule,Delayed Release(Dr/Ec) 60 mg PO DAILY 15 Days Qty: 15 RF: 0 aripiprazole [Abilify] 2 mg Tablet 2 mg PO HS 15 Days Qty: 15 RF: 0 Continued multivitamin Tablet 1 tab PO DAILY RF: 0 amoxicillin-pot clavulanate [Augmentin] 875-125 mg Tablet 1 tab PO BID Qty: 3 RF: 0 Eliquis 5 mg Tablet 5 mg PO BID 30 Days Qty: 60 RF: 0 Discontinued nicotine 14 mg/24 hr Patch 24 Hour 1 patch TRANSDERMAL DAILY RF: 0 trazodone 300 mg Tablet 300 mg PO HS PRN (Reason: Insomnia) RF: 0 diazepam [Valium] 5 mg Tablet 5 mg PO UD RF: 0 atomoxetine [Strattera] 10 mg Capsule 30 mg PO QAM RF: 0 buprenorphine-naloxone 2-0.5 mg Tablet, Sublingual 2 tab SUBLINGUAL UD RF: 0 Stand-Alone Forms: [employer], [facility], Opioid Pain Management Discharge Orders: Discharge Order (Routine); Ordered 03/08/19 Ordered By: Mariah Matt Admission Data Admit Date/Time: 03/03/19 14:15 Attending Provider: Mariah Matt Admit Provider: Magalie Lyle Primary Care Provider: PCP,NO Other Providers: Magalie Lyle ; Yadiel Franklin ; Elvie Pan A John ; Paras Piedra ; Jason Miller ; Lidya Chambers ; Kev Huynh ; Gala Shelton ; Cande Martin ; Omar Matthew ; Aisha Henriquez ; Ronaldo Marie I ; Ewa Harry ; Joanne Varela ; Tracy Ordaz ; Adalberto Mason Service: Telemetry Medical Other Interventions: Discharge Summary Assessment (RN) Last Done: 03/08/19 21:33 DC Date/Time DO NOT enter until pt leaves facility: 03/08/19 23:25
== END 2019-03-08 23:25 | disposition home or self-care (01) | DRG 175 ==
LOC: ED 10:04 → 2W 14:15
DX: Z88.5 Allergy status to narcotic agent; F17.200 Nicotine dependence, unspecified, uncomplicated; R55 Syncope and collapse; F41.8 Other specified anxiety disorders; J18.9 Pneumonia, unspecified organism; I26.99 Other pulmonary embolism without acute cor pulmonale; F19.10 Other psychoactive substance abuse, uncomplicated